=== PATIENT | female | born 1995 | race Caucasian/White ===

== ENCOUNTER → 2016-09-06 | Outpatient (CLI) | payer OTHER ==
[~2016-09-06] MED LIST: ACET50TA PO; ANUS2.5C2 PR; DOCU10ELUD PO; IBUP600T26 PO; MOM30SS PO
--- NOTE | 2016-09-06 17:37 | REP ---
Clinical: Acute headache . Comparison: None. Findings: The ventricles, sulci, and cisterns are normal in position and appearance. Wood-white differentiation is maintained. No acute intracranial hemorrhage, mass/mass effect, pathology or trauma/injury. No evidence for acute infarction. No extra-axial fluid collection. Calvarium is intact. Paranasal sinuses and mastoid air cells are clear. Impression: Normal noncontrast head CT. No evidence for acute intracranial pathology or trauma/injury. Signed by Bautista Mtz MD 09/06/2016 05:28 P
== END ==
LOC: M RAD 17:03
PROVIDERS: ATTEND Family Medicine Addiction Medicine
DX: R51 Headache (principal)

== ENCOUNTER → 2017-01-05 | Outpatient (CLI) | payer MEDICAID, OTHER, SELFPAY ==
[~2017-01-05] MED LIST changes: +IBUP80TA PO; +SUMA100T2 PO
--- NOTE | 2017-01-06 00:15 | REP ---
Clinical: Pain. Technique: AP and axial views of the left calcaneus. Findings: The calcaneus is intact without acute fracture or dislocation. The associated joint spaces are normal. The associated and surrounding soft tissue structures are unremarkable. Impression: Normal left calcaneus radiographs. Signed by Bautista Mtz MD 01/06/2017 12:06 A
--- NOTE | 2017-01-06 02:17 | REP ---
Clinical: Pain . Technique: AP, lateral, bilateral oblique views. Findings: No acute fracture or dislocation. Skeletal structures and joint spaces are intact and normal. Ankle mortise appears stable. No subcutaneous emphysema or radiodense foreign body. Impression: Normal left ankle radiograph series. Signed by Bautista Mtz MD 01/06/2017 02:08 A
== END ==
LOC: M WUC 18:18
PROVIDERS: ATTEND Physician Assistant
DX: M76.62 Achilles tendinitis, left leg (principal)

== ENCOUNTER 2017-01-10 12:05 | Emergency (ER) | payer MEDICAID, OTHER ==
[~2017-01-10] VITALS: Ht 175.3 cm; Wt 86.2 kg
[~2017-01-10 12:05] MED LIST changes: -IBUP80TA PO; -SUMA100T2 PO
[2017-01-10 12:06] VITALS: BP 116/73
[2017-01-10] MEDS ORDERED: SUMA100T2 PO (12:27)
[2017-01-10] MEDS ORDERED: IBUP80TA PO (13:06)
== END 2017-01-10 13:16 | disposition home or self-care (01) ==
LOC: M ED 12:50
DX: S93.402A Sprain of unspecified ligament of left ankle, initial encounter (principal); X58.XXXA Exposure to other specified factors, initial encounter; Y92.099 Unspecified place in other non-institutional residence as the place of occurrence of the external cause; Y93.H1 Activity, digging, shoveling and raking; Y99.9 Unspecified external cause status; R51 Headache; F17.200 Nicotine dependence, unspecified, uncomplicated

== ENCOUNTER → 2017-06-21 | Outpatient (REF) | payer OTHER ==
[~2017-06-21] MED LIST changes: +IBUP80TA PO; +SUMA100T2 PO
== END ==
LOC: M LAB REF 17:17
PROVIDERS: ATTEND Advanced Practice Midwife
DX: Z11.3 Encounter for screening for infections with a predominantly sexual mode of transmission (principal)

== ENCOUNTER → 2017-06-21 | Outpatient (REF) | payer OTHER | LOC: M LAB REF 18:36 | PROVIDERS: ATTEND Advanced Practice Midwife | DX: Z12.4 Encounter for screening for malignant neoplasm of cervix (principal) ==

== ENCOUNTER → 2017-07-03 | Outpatient (CLI) | payer OTHER ==
[2017-07-03 16:45] LABS: BASO % 0.3 % (0.0-1.0); EOS # 0.3 10^3/uL (0.0-0.50); EOS % 3.6 % (0.0-3.0); IMMATURE GRANULOCYTE % 0.3 % (0-0); LYMPH # 2.5 10^3/uL (1.5-6.5); LYMPH % 27.2 % (24.0-44.0); MEAN CORPUSCULAR HEMOGLOBIN 28.1 pg (27.0-33.0); MEAN CORPUSCULAR HGB CONC 33.4 g/dl (32.0-36.5); MEAN CORPUSCULAR VOLUME 84.1 fl (80.0-96.0); MONO # 0.6 10^3/uL (0.0-0.8); MONO % 6.4 % (0.0-5.0); NEUTROPHILS # 5.8 10^3/uL (1.8-7.7); NEUTROPHILS % 62.2 % (36.0-66.0); PLATELET COUNT, AUTOMATED 220 10^3/uL (150-450); RED CELL DISTRIBUTION WIDTH 11.9 % (11.5-14.5); WHITE BLOOD COUNT 9.4 10^3/uL (4.0-10.0)
[2017-07-03 17:42] LABS: ALBUMIN 3.9 GM/DL (3.2-5.2); ALBUMIN/GLOBULIN RATIO 1.22 (1.00-1.93); ALKALINE PHOSPHATASE 84 U/L (45-117); ALT/SGPT 38 U/L (12-78); ANION GAP 10 MEQ/L (8-16); AST/SGOT 21 U/L (7-37); BILIRUBIN,TOTAL 0.3 MG/DL (0.2-1.0); BLOOD UREA NITROGEN 11 MG/DL (7-18); CALCIUM LEVEL 9.1 MG/DL (8.5-10.1); CARBON DIOXIDE LEVEL 26 MEQ/L (21-32); CHLORIDE LEVEL 107 MEQ/L (98-107); CREATININE FOR GFR 0.73 MG/DL (0.55-1.02); GLOMERULAR FILTRATION RATE > 60.0 (>60); GLUCOSE, FASTING 94 MG/DL (70-105); POTASSIUM SERUM 4.1 MEQ/L (3.5-5.1); SODIUM LEVEL 143 MEQ/L (136-145); TOTAL PROTEIN 7.1 GM/DL (6.4-8.2)
== END ==
LOC: M LAB 16:20
PROVIDERS: ATTEND Psychiatry & Neurology Child & Adolescent Psychiatry
DX: F43.10 Post-traumatic stress disorder, unspecified (principal)

== ENCOUNTER → 2017-07-03 | Outpatient (REF) | payer OTHER | LOC: M LAB REF 17:17 | PROVIDERS: ATTEND Family Medicine Addiction Medicine | DX: F43.10 Post-traumatic stress disorder, unspecified (principal) ==

== ENCOUNTER 2017-09-09 09:45 | Emergency (ER) | payer OTHER | END 2017-09-09 10:55 | disposition left against medical advice (07) | LOC: M ED 09:45 | DX: R51 Headache (principal); Z53.21 Procedure and treatment not carried out due to patient leaving prior to being seen by health care provider ==

== ENCOUNTER 2017-09-10 15:39 | Emergency (ER) | payer OTHER ==
[2017-09-10] MEDS: ACETAMINOPHEN 325 MG TAB PO (20:16)
[2017-09-10 21:23] LABS: INFLUENZA A AMPLIFICATION NEGATIVE (NEGATIVE); INFLUENZA B AMPLIFICATION NEGATIVE (NEGATIVE)
== END 2017-09-10 21:41 | disposition home or self-care (01) ==
LOC: M ED 15:39
DX: R51 Headache (principal); J02.9 Acute pharyngitis, unspecified; R50.9 Fever, unspecified; F17.200 Nicotine dependence, unspecified, uncomplicated; Z88.8 Allergy status to other drugs, medicaments and biological substances; Z79.899 Other long term (current) drug therapy
CPT/HCPCS: 87502

== ENCOUNTER → 2017-11-10 | Outpatient (CLI) | payer OTHER | LOC: M RAD 12:54 | DX: M76.62 Achilles tendinitis, left leg (principal) | CPT/HCPCS: 73721 ==

== ENCOUNTER → 2017-11-14 | Outpatient (REF) | payer OTHER ==
[2017-11-14 17:29] LABS: BASO % 0.5 % (0.0-1.0); EOS # 0.2 10^3/uL (0.0-0.50); EOS % 3.6 % (0.0-3.0); HEMATOCRIT 41.1 % (36.0-47.0); HEMOGLOBIN 14.1 g/dl (12.0-15.5); IMMATURE GRANULOCYTE % 0.2 % (0-3.0); LYMPH % 32.1 % (24.0-44.0); MEAN CORPUSCULAR HEMOGLOBIN 27.9 pg (27.0-33.0); MEAN CORPUSCULAR HGB CONC 34.3 g/dl (32.0-36.5); MEAN CORPUSCULAR VOLUME 81.2 fl (80.0-96.0); MONO # 0.5 10^3/uL (0.0-0.8); MONO % 7.1 % (0.0-5.0); NEUTROPHILS # 3.6 10^3/uL (1.8-7.7); NEUTROPHILS % 56.5 % (36.0-66.0); PLATELET COUNT, AUTOMATED 213 10^3/uL (150-450); RED BLOOD COUNT 5.06 10^6/uL (4.00-5.40); RED CELL DISTRIBUTION WIDTH 12.4 % (11.5-14.5); WHITE BLOOD COUNT 6.3 10^3/uL (4.0-10.0)
[2017-11-14 18:29] LABS: ALBUMIN 4.1 GM/DL (3.2-5.2); ALBUMIN/GLOBULIN RATIO 1.41 (1.00-1.93); ALKALINE PHOSPHATASE 80 U/L (45-117); ALT/SGPT 37 U/L (12-78); ANION GAP 6 MEQ/L (8-16); AST/SGOT 23 U/L (7-37); BILIRUBIN,TOTAL 0.4 MG/DL (0.2-1.0); BLOOD UREA NITROGEN 11 MG/DL (7-18); CARBON DIOXIDE LEVEL 27 MEQ/L (21-32); CHLORIDE LEVEL 109 MEQ/L (98-107); CREATININE FOR GFR 0.64 MG/DL (0.55-1.30); FREE THYROXINE INDEX 3.2 % (1.3-4.8); GLOMERULAR FILTRATION RATE > 60.0 (>60); GLUCOSE, FASTING 89 MG/DL (70-100); POTASSIUM SERUM 3.9 MEQ/L (3.5-5.1); SODIUM LEVEL 142 MEQ/L (136-145); T UPTAKE 34 % (30-39); THYROID STIMULATING HORMONE 0.608 uIU/ML (0.358-3.740); THYROXINE (T4) 9.4 UG/DL (4.5-12.0)
[2017-11-15 12:56] LABS: TOTAL 25(OH) VITAMIN D 11.1 NG/ML (30.0-100.0)
== END ==
LOC: M LAB REF 17:07
DX: F43.10 Post-traumatic stress disorder, unspecified (principal)

== ENCOUNTER 2017-11-23 09:02 | Day surgery (SDC) | payer OTHER ==
[~2017-11-23 09:02] MED LIST changes: -ACET50TA PO; -ANUS2.5C2 PR; -DOCU10ELUD PO; -IBUP600T26 PO; -IBUP80TA PO; +LIDOCAINE 1% MDV 20ML VIAL SQ; +LR 1,000 ML IV; -MOM30SS PO; -SUMA100T2 PO
[2017-11-23] MEDS ORDERED: dexameTHASONE 10 MG/1 ML VIAL PRES.FREE (J1100) (09:03)
[2017-11-23] MEDS ORDERED: ROPIvacaine 0.5% 30 ML INJECTION (J2795 PER 1MG) (09:03)
[2017-11-23 10:03] LABS: CONTROL LINE UCG INT CTR LINE PRESENT; URINE PREG TEST NEGATIVE (NEGATIVE)
[2017-11-23] MEDS ORDERED: MIDAZOLAM INJ 2 MG/2 ML VIAL (J2250) As Ordered ×2 (11:09→12:26)
[2017-11-23] MEDS ORDERED: fentaNYL 100 MCG/2 ML INJECTION (J3010) As Ordered ×3 (11:09→12:26)
[2017-11-23] MEDS: fentaNYL 100 MCG/2 ML INJECTION (J3010) IV ×2 (11:36→11:47)
[2017-11-23] MEDS: MIDAZOLAM INJ 2 MG/2 ML VIAL (J2250) IV ×2 (11:36→11:37)
[2017-11-23] MEDS ORDERED: dexameTHASONE 4 MG/ML 1ML VIAL (J1100) As Ordered (12:26)
[2017-11-23] MEDS ORDERED: LIDOCAINE 2% INJ 100 MG/5 ML SDV (FOR ANES.) As Ordered (12:26)
[2017-11-23] MEDS ORDERED: PROPOFOL 200 MG/20 ML VIAL As Ordered (12:26)
[2017-11-23] MEDS ORDERED: ROCURONIUM BROMIDE 50 MG/5 ML VIAL As Ordered (12:26)
[2017-11-23] MEDS ORDERED: KETOROLAC 60 MG/2 ML VIAL (J1885) As Ordered (14:01)
[2017-11-23] MEDS ORDERED: ONDANSETRON 4MG/2ML VIAL (J2405) As Ordered (14:01)
[2017-11-23] MEDS ORDERED: HYDROmorphone HCL 2 MG/ML 1ML VIAL (J1170) As Ordered (14:21)
[2017-11-23] MEDS ORDERED: METOCLOPRAMIDE INJ 10MG/2ML VIAL (J2765) As Ordered (16:28)
[2017-11-23] MEDS ORDERED: KETOROLAC 30 MG/ML VIAL (J1885) IV (16:30)
[2017-11-23] MEDS ORDERED: PERCOCET 5MG/325MG TAB PO (16:30)
[2017-11-23] MEDS ORDERED: oxyCODONE 5MG TAB PO ×2 (16:30)
[2017-11-23] MEDS ORDERED: LR 1,000 ML IV ×2 (16:30)
[2017-11-23] MEDS ORDERED: ONDANSETRON 4MG/2ML VIAL (J2405) IV (16:30)
[2017-11-23] MEDS ORDERED: fentaNYL 100 MCG/2 ML INJECTION (J3010) IV (16:30)
[2017-11-23] MEDS: METOCLOPRAMIDE INJ 10MG/2ML VIAL (J2765) IV (16:40)
== END 2017-11-23 19:15 | disposition home or self-care (01) ==
LOC: M SDC 09:02
DX: M76.62 Achilles tendinitis, left leg (principal); F32.9 Major depressive disorder, single episode, unspecified; F41.9 Anxiety disorder, unspecified; G43.909 Migraine, unspecified, not intractable, without status migrainosus; T88.59XD Other complications of anesthesia, subsequent encounter; Z88.5 Allergy status to narcotic agent; Z88.6 Allergy status to analgesic agent; Z88.8 Allergy status to other drugs, medicaments and biological substances; Z79.899 Other long term (current) drug therapy; Z87.891 Personal history of nicotine dependence
CPT/HCPCS: 27650

== ENCOUNTER 2017-11-29 15:17 | Inpatient (IN) | payer OTHER ==
[2017-11-29 16:06] LABS: HEMATOCRIT 46.4 % (36.0-47.0); MEAN CORPUSCULAR HGB CONC 34.5 g/dl (32.0-36.5); MEAN CORPUSCULAR VOLUME 81.1 fl (80.0-96.0); PLATELET COUNT, AUTOMATED 297 10^3/uL (150-450); RED BLOOD COUNT 5.72 10^6/uL (4.00-5.40); RED CELL DISTRIBUTION WIDTH 12.6 % (11.5-14.5); WHITE BLOOD COUNT 12.9 10^3/uL (4.0-10.0)
[2017-11-29 16:27] LABS: AMPHETAMINES LEVEL URINE NEGATIVE (NEGATIVE); BARBITURATES URINE NEGATIVE (NEGATIVE); BENZODIAZEPINES URINE NEGATIVE (NEGATIVE); CANNABINOIDS URINE NEGATIVE (NEGATIVE); COCAINE METABOLITE URINE NEGATIVE (NEGATIVE); METHADONE URINE NEGATIVE (NEGATIVE); OPIATES URINE NEGATIVE (NEGATIVE); PHENCYCLIDINE URINE NEGATIVE (NEGATIVE)
[2017-11-29 16:39] LABS: ALBUMIN 4.8 GM/DL (3.2-5.2); ALBUMIN/GLOBULIN RATIO 1.45 (1.00-1.93); ALKALINE PHOSPHATASE 81 U/L (45-117); ALT/SGPT 92 U/L (12-78); ANION GAP 8 MEQ/L (8-16); AST/SGOT 25 U/L (7-37); BILIRUBIN,DIRECT 0.2 MG/DL (0.0-0.2); BILIRUBIN,TOTAL 0.6 MG/DL (0.2-1.0); BLOOD UREA NITROGEN 11 MG/DL (7-18); CALCIUM LEVEL 9.6 MG/DL (8.5-10.1); CARBON DIOXIDE LEVEL 22 MEQ/L (21-32); CHLORIDE LEVEL 110 MEQ/L (98-107); ETHYL ALCOHOL (ETHANOL) < 0.003 % (0.000-0.010); GLOMERULAR FILTRATION RATE > 60.0 (>60); GLUCOSE, FASTING 99 MG/DL (70-100); POTASSIUM SERUM 4.1 MEQ/L (3.5-5.1); SALICYLATE LEVEL < 1.7 MG/DL (5.0-30.0); SODIUM LEVEL 140 MEQ/L (136-145); TOTAL PROTEIN 8.1 GM/DL (6.4-8.2)
[2017-11-29 16:40] LABS: ACETAMINOPHEN LEVEL < 2.0 UG/ML (10.0-30.0)
[2017-11-29] MEDS ORDERED: MAALOX 30 ML SUSP *UDC PO (18:30)
[2017-11-29] MEDS ORDERED: ACETAMINOPHEN TAB 650MG DOSE (2X325MG) PO (18:30)
[2017-11-29] MEDS ORDERED: MOM 30ML SUSPENSION UDC PO (18:30)
[2017-11-29] MEDS: IBUPROFEN 600 MG TAB PO (19:40)
[2017-11-29] MEDS: traZODone 50 MG TAB PO (22:33)
[2017-11-29] MEDS: PRAZOSIN 1 MG CAP PO (22:34)
[2017-11-30] MEDS ORDERED: NICOTINE 21MG/24HR 1 EA TRANSDERMAL TD (00:45)
[2017-11-30] MEDS: SERTRALINE HCL 50 MG TAB PO (08:49)
[2017-11-30] MEDS: IBUPROFEN 600 MG TAB PO (08:50)
[2017-12-01] MEDS ORDERED: INFLUENZA QUADRIVALENT PF VACCINE 0.5ML SYRINGE (90686) IM (09:00)
[2017-12-01 09:47] LABS: HEPATITIS B SURFACE ANTIGEN NEGATIVE (NEGATIVE)
[2017-12-01 10:14] LABS: HEPATITIS C VIRUS ABY INDEX 0.1 INDEX (<0.8)
[2017-12-01 10:14] LABS: HEPATITIS B CORE ANTIBODY IGM NEGATIVE (NEGATIVE)
[2017-12-01 10:16] LABS: HEPATITIS A ANTIBODY IGM NEGATIVE (NEGATIVE)
== END 2017-11-30 13:00 | disposition home or self-care (01) | DRG 754 ==
LOC: M ED 15:17 → M ED INP 18:16 → M PSY 21:20
PROVIDERS: Psychiatry & Neurology Psychiatry
DX: F43.21 Adjustment disorder with depressed mood (principal); Z79.899 Other long term (current) drug therapy; Z88.5 Allergy status to narcotic agent; Z88.8 Allergy status to other drugs, medicaments and biological substances; F17.200 Nicotine dependence, unspecified, uncomplicated; D72.829 Elevated white blood cell count, unspecified; R94.5 Abnormal results of liver function studies

== ENCOUNTER → 2018-01-23 | Outpatient (REF) | payer OTHER ==
[2018-01-29 00:09] LABS: D001-IgE D pteronyssinus <0.10 kU/L (Class 0); E001-IgE Cat Epith/Dander < 0.10 kU/L (Class 0); E005-IgE Dog Dander < 0.10 kU/L (Class 0); F256-IGE WALNUT <0.10 kU/L (Class 0); G002-IgE Bermuda Grass < 0.10 kU/L (Class 0); G006-IGE TIMOTHY GRASS <0.10 kU/L (Class 0); G008-IgE Kentucky Bluegrass < 0.10 kU/L (Class 0); M001-IgE Penicillium chrysogen < 0.10 kU/L (Class 0); M002 IgE Cladosporium herbaru < 0.10 kU/L (Class 0); M003 IgE Aspergillus fumigatu < 0.10 kU/L (Class 0); M006-IgE Alternaria alternata < 0.10 kU/L (Class 0); T001-IgE Maple/Box Elder < 0.10 kU/L (Class 0); T003-IgE Common Silver Birch < 0.10 kU/L (Class 0); T006-IgE Cedar, Mountain < 0.10 kU/L (Class 0); T007-IgE Oak, White < 0.10 kU/L (Class 0); T008-IgE Elm, American < 0.10 kU/L (Class 0); T015-IgE Ash, White < 0.10 kU/L (Class 0); T041-IgE Hickory, White < 0.10 kU/L (Class 0); T070-IgE White Mulberry < 0.10 kU/L (Class 0); W001-IgE Ragweed, Short < 0.10 kU/L (Class 0); W009-IgE Plantain, English < 0.10 kU/L (Class 0); W014-IgE Pigweed, Rough < 0.10 kU/L (Class 0); W018-IgE Sheep Sorrel < 0.10 kU/L (Class 0)
== END ==
LOC: M LAB REF 18:59
DX: R09.81 Nasal congestion (principal)
CPT/HCPCS: 86003

== ENCOUNTER → 2018-04-02 | Outpatient (REF) | payer OTHER ==
[2018-04-02 18:48] LABS: CONTROL LINE UCG INT CTR LINE PRESENT; URINE PREG TEST NEGATIVE (NEGATIVE)
[2018-04-02 19:06] LABS: BASO % 0.4 % (0.0-1.0); EOS # 0.2 10^3/uL (0.0-0.50); EOS % 2.5 % (0.0-3.0); HEMATOCRIT 43.2 % (36.0-47.0); HEMOGLOBIN 14.6 g/dl (12.0-15.5); IMMATURE GRANULOCYTE % 0.3 % (0-3.0); LYMPH # 1.9 10^3/uL (1.5-6.5); LYMPH % 24.7 % (24.0-44.0); MEAN CORPUSCULAR HEMOGLOBIN 28.5 pg (27.0-33.0); MEAN CORPUSCULAR HGB CONC 33.8 g/dl (32.0-36.5); MEAN CORPUSCULAR VOLUME 84.4 fl (80.0-96.0); MONO # 0.5 10^3/uL (0.0-0.8); MONO % 6.6 % (0.0-5.0); NEUTROPHILS # 5.2 10^3/uL (1.8-7.7); NEUTROPHILS % 65.5 % (36.0-66.0); PLATELET COUNT, AUTOMATED 219 10^3/uL (150-450); RED BLOOD COUNT 5.12 10^6/uL (4.00-5.40); WHITE BLOOD COUNT 7.9 10^3/uL (4.0-10.0)
[2018-04-02 19:22] LABS: APPEARANCE, URINE HAZY (CLEAR); BACTERIA, URINE AUTO 1+ (NEGATIVE); BILIRUBIN, URINE AUTO NEGATIVE (NEGATIVE); BLOOD, URINE BLOOD 1+ (NEGATIVE); COLOR, URINE YELLOW (YELLOW); GLUCOSE, URINE (UA) AUTO NEGATIVE (NEGATIVE); KETONE, URINE AUTO NEGATIVE (NEGATIVE); LEUKOCYTE ESTERASE, URINE AUTO TRACE (NEGATIVE); MUCUS, URINE SMALL (NEGATIVE); NITRITE, URINE AUTO NEGATIVE (NEGATIVE); PROTEIN, URINE AUTO NEGATIVE (NEGATIVE); RBC, URINE AUTO 7 /HPF (0-3); SPECIFIC GRAVITY URINE AUTO 1.014 (1.002-1.035); SQUAMOUS EPITHELIAL CELL UR AU 3 /HPF (0-6); UROBILINOGEN, URINE AUTO 0.2 mg/dL (0.0-2.0); WBC, URINE AUTO 31 /HPF (0-3)
[2018-04-02 23:17] LABS: ALBUMIN 4.2 GM/DL (3.2-5.2); ALKALINE PHOSPHATASE 79 U/L (45-117); ALT/SGPT 29 U/L (12-78); ANION GAP 11 MEQ/L (8-16); AST/SGOT 16 U/L (7-37); BILIRUBIN,TOTAL 0.5 MG/DL (0.2-1.0); BLOOD UREA NITROGEN 9 MG/DL (7-18); CARBON DIOXIDE LEVEL 21 MEQ/L (21-32); CHLORIDE LEVEL 108 MEQ/L (98-107); FREE THYROXINE INDEX 3.6 % (1.3-4.8); GLOMERULAR FILTRATION RATE > 60.0 (>60); GLUCOSE, FASTING 92 MG/DL (70-100); POTASSIUM SERUM 4.1 MEQ/L (3.5-5.1); SODIUM LEVEL 140 MEQ/L (136-145); T UPTAKE 32 % (30-39); THYROID STIMULATING HORMONE 0.919 uIU/ML (0.358-3.740); THYROXINE (T4) 11.4 UG/DL (4.5-12.0); TOTAL PROTEIN 7.4 GM/DL (6.4-8.2)
[2018-04-02 23:34] LABS: ALBUMIN/GLOBULIN RATIO 1.31 (1.00-1.93)
[2018-04-03 00:12] LABS: CHLAMYDIA DNA AMPLIFICATION NEGATIVE (NEGATIVE); GC DNA AMPLIFICATION NEGATIVE (NEGATIVE)
[2018-04-04 19:36] LABS: HIV 1&2 SCREEN CENTAUR NEGATIVE (NEGATIVE)
== END ==
LOC: M LAB REF 17:05
DX: Z72.51 High risk heterosexual behavior (principal)

== ENCOUNTER 2018-05-02 11:01 | Emergency (ER) | payer OTHER | END 2018-05-02 12:14 | disposition home or self-care (01) | LOC: M ED 11:01 | DX: S60.221A Contusion of right hand, initial encounter (principal); W23.0XXA Caught, crushed, jammed, or pinched between moving objects, initial encounter; Y92.018 Other place in single-family (private) house as the place of occurrence of the external cause; F33.9 Major depressive disorder, recurrent, unspecified; F41.9 Anxiety disorder, unspecified; F43.10 Post-traumatic stress disorder, unspecified; Z79.899 Other long term (current) drug therapy; Z79.3 Long term (current) use of hormonal contraceptives; Z88.8 Allergy status to other drugs, medicaments and biological substances; F17.201 Nicotine dependence, unspecified, in remission | CPT/HCPCS: 73120 ==

== ENCOUNTER 2018-11-03 11:31 | Emergency (ER) | payer OTHER ==
[~2018-11-03] VITALS: Ht 170.2 cm; Wt 77.3 kg
[~2018-11-03 11:31] MED LIST changes: +ANUS2.5C2 PR; +DOCU5LIQ PO; +GABA-1171 PO; +IBUP600T26 PO; +IBUP80TA PO; +IBUPOTC PO; -LIDOCAINE 1% MDV 20ML VIAL SQ; -LR 1,000 ML IV; +MAPA500T17 PO; +MAXA10TA15 PO; +MOM30SS PO; +NEXP1IMP SC; +OXYC-517 PO; +PRAZ1CAP; +PRAZ2CAP PO; +SERT-138 PO; +SERT-155 PO; +SUMA100T2 PO; +TRAZ-186; +WELLTAB40 PO; +[UNRECOGNIZED DRUG - REMARK]
[2018-11-03] MEDS ORDERED: KETOROLAC 60 MG/2 ML VIAL (J1885) IM ONE (12:30)
--- NOTE | 2018-11-03 13:06 | REP ---
Right shoulder series: Three views. History: Trauma. Findings: The right glenohumeral and acromioclavicular joints are normally aligned. Periarticular soft tissues are unremarkable. Impression: Negative right shoulder radiographs. Electronically Signed by Sundar Farnsworth MD 11/03/2018 12:58 P
--- NOTE | 2018-11-03 13:06 | REP ---
Left forearm: Two views. History: Injury in a fall. Findings: AP and lateral views of the left forearm demonstrate normal bones, joints and soft tissues. No fracture or subluxation is seen. Impression: No fracture noted. Electronically Signed by Sundar Farnsworth MD 11/03/2018 12:59 P
--- NOTE | 2018-11-03 13:07 | REP ---
Left humerus: Two views. History: Injury in a fall. Findings: Two views of the left humerus demonstrate normal bones, joints and soft tissues. No fracture or subluxation is seen. There is a linear subcutaneous implant in the left upper arm soft tissues. Impression: No fracture noted. Electronically Signed by Sundar Farnsworth MD 11/03/2018 01:00 P
[2018-11-03] MEDS ORDERED: NAPR-837 PO (13:13)
[2018-11-03 13:20] VITALS: BP 106/65
== END 2018-11-03 13:26 | disposition home or self-care (01) ==
LOC: M ED 11:31
DX: S40.011A Contusion of right shoulder, initial encounter (principal); S50.02XA Contusion of left elbow, initial encounter; W10.9XXA Fall (on) (from) unspecified stairs and steps, initial encounter; Y92.89 Other specified places as the place of occurrence of the external cause; Y93.9 Activity, unspecified; Y99.0 Civilian activity done for income or pay; R51 Headache; F43.10 Post-traumatic stress disorder, unspecified; N93.8 Other specified abnormal uterine and vaginal bleeding; Z72.0 Tobacco use; Z79.3 Long term (current) use of hormonal contraceptives; Z79.899 Other long term (current) drug therapy; Z88.5 Allergy status to narcotic agent
CPT/HCPCS: 73030; 73060; 73090; 96372; 99283; J1885

== ENCOUNTER → 2018-12-05 | Outpatient (REF) | payer OTHER ==
[~2018-12-05] MED LIST changes: +NAPR-837 PO
[2018-12-05 18:24] LABS: BASO % 0.3 % (0.0-1.0); EOS # 0.2 10^3/uL (0.0-0.50); EOS % 2.6 % (0.0-3.0); HEMATOCRIT 42.9 % (36.0-47.0); HEMOGLOBIN 14.3 g/dl (12.0-15.5); LYMPH # 2.2 10^3/uL (1.5-6.5); LYMPH % 31.7 % (24.0-44.0); MEAN CORPUSCULAR HEMOGLOBIN 28.4 pg (27.0-33.0); MEAN CORPUSCULAR HGB CONC 33.3 g/dl (32.0-36.5); MEAN CORPUSCULAR VOLUME 85.1 fl (80.0-96.0); MONO # 0.6 10^3/uL (0.0-0.8); MONO % 8.9 % (0.0-5.0); NEUTROPHILS # 3.8 10^3/uL (1.8-7.7); NEUTROPHILS % 56.2 % (36.0-66.0); PLATELET COUNT, AUTOMATED 206 10^3/uL (150-450); RED BLOOD COUNT 5.04 10^6/uL (4.00-5.40); WHITE BLOOD COUNT 6.8 10^3/uL (4.0-10.0)
[2018-12-05 18:43] LABS: ALT/SGPT 26 U/L (12-78); BILIRUBIN,TOTAL 0.4 MG/DL (0.2-1.0); BLOOD UREA NITROGEN 11 MG/DL (7-18); CARBON DIOXIDE LEVEL 27 MEQ/L (21-32); CHLORIDE LEVEL 109 MEQ/L (98-107); CREATININE FOR GFR 0.68 MG/DL (0.55-1.30); GLOMERULAR FILTRATION RATE > 60.0 (>60); GLUCOSE, FASTING 80 MG/DL (70-100); POTASSIUM SERUM 4.2 MEQ/L (3.5-5.1); SODIUM LEVEL 140 MEQ/L (136-145); TOTAL PROTEIN 6.6 GM/DL (6.4-8.2)
== END ==
LOC: M LAB REF 17:56
PROVIDERS: ATTEND Nurse Practitioner Family
DX: R23.8 Other skin changes (principal)

== ENCOUNTER 2019-04-17 13:50 | Emergency (ER) | payer OTHER ==
[~2019-04-17] VITALS: Ht 170.2 cm; Wt 82.6 kg
[~2019-04-17 13:50] MED LIST changes: -PRAZ1CAP; +PRAZ1CAP PO
--- NOTE | 2019-04-17 15:59 | REP ---
CHEST, TWO VIEWS: There is no evidence of acute infiltrate. No pleural effusion is seen. The heart is normal in size. The mediastinal silhouette is unremarkable. The visualized osseous structures are intact. IMPRESSION: No acute pulmonary disease. Electronically Signed by Clovis Wood MD 04/18/2019 08:59 A
[2019-04-17] MEDS ORDERED: MUCI600T31 PO (16:25)
[2019-04-17] MEDS ORDERED: TESS100C PO (16:25)
[2019-04-17] MEDS ORDERED: IBUP-1022 PO (16:25)
[2019-04-17 16:45] VITALS: BP 125/78
--- NOTE | 2019-04-17 20:49 | ECGEPIP ---
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
== END 2019-04-17 16:44 | disposition home or self-care (01) ==
LOC: M ED 13:50
DX: J40 Bronchitis, not specified as acute or chronic (principal); S46.911A Strain of unspecified muscle, fascia and tendon at shoulder and upper arm level, right arm, initial encounter; X58.XXXA Exposure to other specified factors, initial encounter; Y92.89 Other specified places as the place of occurrence of the external cause; Z88.4 Allergy status to anesthetic agent; F17.210 Nicotine dependence, cigarettes, uncomplicated; Z79.899 Other long term (current) drug therapy

== ENCOUNTER → 2020-08-04 | Outpatient (REF) | payer OTHER ==
[~2020-08-04] MED LIST changes: +IBUP-1022 PO; +MUCI600T31 PO; -SERT-155 PO; +SERT50TA29 PO; +TESS100C PO
== END ==
LOC: M SFHCWAGY 18:08
PROVIDERS: ATTEND Nurse Practitioner Family
DX: Z12.4 Encounter for screening for malignant neoplasm of cervix (principal)
CPT/HCPCS: 87624; G0123; G0463

== ENCOUNTER → 2020-09-14 | Outpatient (REF) | payer OTHER | LOC: M SFHCWAGY 13:04 | PROVIDERS: ATTEND Nurse Practitioner Women's Health | DX: R87.613 High grade squamous intraepithelial lesion on cytologic smear of cervix (HGSIL) (principal) ==

== ENCOUNTER 2021-02-27 08:03 | Observation (INO) | payer OTHER ==
[~2021-02-27] VITALS: Ht 170.2 cm; Wt 85.3 kg
[2021-02-27] MEDS ORDERED: ETON1VAG3 PV (08:11)
[2021-02-27] MEDS: ACETAMINOPHEN TAB 650MG DOSE (2X325MG) PO ONE ×2 (08:20→08:56)
[2021-02-27 08:54] LABS: BASO # 0.1 10^3/uL (0.0-0.2); BASO % 0.3 % (0.0-1.0); EOS # 0.1 10^3/uL (0.0-0.5); EOS % 0.9 % (0.0-3.0); HEMOGLOBIN 14.7 g/dl (12.0-15.5); LYMPH # 1.6 10^3/uL (1.5-5.0); LYMPH % 10.8 % (24.0-44.0); MEAN CORPUSCULAR HEMOGLOBIN 27.8 pg (27.0-33.0); MEAN CORPUSCULAR HGB CONC 33.4 g/dl (32.0-36.5); MEAN CORPUSCULAR VOLUME 83.2 fl (80.0-96.0); MONO # 0.8 10^3/uL (0.0-0.8); MONO % 5.2 % (2.0-8.0); NEUTROPHILS # 12.6 10^3/uL (1.5-8.5); NEUTROPHILS % 82.4 % (36.0-66.0); PLATELET COUNT, AUTOMATED 208 10^3/uL (150-450); RED BLOOD COUNT 5.29 10^6/uL (4.00-5.40); WHITE BLOOD COUNT 15.2 10^3/uL (4.0-10.0)
[2021-02-27] MEDS ORDERED: ACETAMINOPHEN 325 MG/10.15 ML UDC PO ONE (09:00)
[2021-02-27 09:09] LABS: BLOOD UREA NITROGEN 13 MG/DL (7-18); CALCIUM LEVEL 9.2 MG/DL (8.5-10.1); CARBON DIOXIDE LEVEL 24 MEQ/L (21-32); CHLORIDE LEVEL 109 MEQ/L (98-107); CREATININE FOR GFR 0.71 MG/DL (0.55-1.30); GLOMERULAR FILTRATION RATE > 60.0 (>60); GLUCOSE, FASTING 101 MG/DL (70-100); POTASSIUM SERUM 3.8 MEQ/L (3.5-5.1); SODIUM LEVEL 139 MEQ/L (136-145)
[2021-02-27 09:21] LABS: RSV AMPLIFICATION NEGATIVE (NEGATIVE)
[2021-02-27] MEDS ORDERED: ISOVUE-370 76% 100ML VIAL As Ordered ONE (09:23)
[2021-02-27] MEDS ORDERED: KETOROLAC 30 MG/ML 1ML VIAL IV ONE (09:45)
--- NOTE | 2021-02-27 10:15 | REPVR ---
PROCEDURE INFORMATION: Exam: CT Neck With Contrast Exam date and time: 02/27/2021 9:30 AM Age: 25 years old Clinical indication: Neck pain; Additional info: Sore throat/neck pain eval for infection TECHNIQUE: Imaging protocol: Computed tomography images of the neck with contrast. Radiation optimization: All CT scans at this facility use at least one of these dose optimization techniques: automated exposure control; mA and/or kV adjustment per patient size (includes targeted exams where dose is matched to clinical indication); or iterative reconstruction. Contrast material: ISOVUE 370; Contrast volume: 75 ml; Contrast route: INTRAVENOUS (IV); COMPARISON: CT Head without contrast 09/06/2016 5:16 PM FINDINGS: Larynx: Ill-defined low-attenuation mucosal and submucosal lesion along the left aspect of the oropharynx extends to the level of the epiglottis. Effacement of the adjacent fat planes the left parapharyngeal space. There is effacement the left piriform sinus and epiglottic vallecula. Retropharyngeal space: Unremarkable. Submandibular/Parotid glands: Normal. Glands are normal in size. Thyroid: Normal. No enlarged or calcified nodules. Lymph nodes: Left jugular chain adenopathy. Trachea: Visualized trachea is unremarkable. Lungs: Unremarkable as visualized. Bones/joints: Unremarkable. No acute fracture. Soft tissues: Unremarkable. No significant soft tissue swelling. IMPRESSION: Ill-defined low-attenuation mucosal and submucosal lesion along the left aspect of the oropharynx extends to the level of the epiglottis. Infectious process is favored. Electronically signed by: Teja Shah On 02/27/2021 10:15:03 AM
[2021-02-27] MEDS ORDERED: AMPICILLIN SOD/SULBACTAM SOD 3 GM in D5W MINI-BAG PLUS 100 ML IV ONE (11:05)
[2021-02-27] MEDS ORDERED: HOME MED LIST COMPLETE! XX SCH (11:20)
--- NOTE | 2021-02-27 12:57 | HPEPDOC ---
[facility] Medical History & Physical Date of Admission Feb 27, 2021 Date of Service: Feb 27, 2021 Primary Care Physician: LUCY OLSEN MD History and Physical CHIEF COMPLAINT: Sore throat HISTORY OF PRESENT ILLNESS: Maliha Limon is a 25-year-old female who presented to the emergency department today due to sudden onset of a sore throat 1 day ago. She states that her throat has been so sore that has been painful to swallow. She is a having a hard time swallowing especially with pills and food. She is able to swallow water but does have pain with this. She is able to swallow her saliva but states this is painful as well. She reports a cough which is nonproductive. No hemoptysis. No fevers or chills at home. She denies any sick contacts and no one at home has been similarly sick. No recent travel. No recent upper respiratory illness or sinus infections. She does report the pain in her throat seems to be spreading up toward her ears. She denies ear fullness and sinus congestion. Denies any recent trauma to her throat or ingestion of anything toxic. She denies any history of similar episodes. On evaluation the emergency department, the patient is found to have an elevated white blood cell count and CT of the neck shows a lesion in the mucosal and submucosal layers of the oropharynx, approaching the epiglottis. ENT was called by the ER physician and Dr. Morley recommended admission with IV antibiotics and ENT consultation. PAST MEDICAL HISTORY: Left Achilles tendon rupture at age 3 Dysfunctional uterine bleeding Migraine headaches PTSD/anxiety/depression PAST SURGICAL HISTORY: Repair of left Achilles tendon x2 SOCIAL HISTORY: Current daily smoker No alcohol. No illicit drugs. Lives at home with 3 children FAMILY HISTORY: Maternal grandmother with history of breast cancer and cervical cancer. Unknown paternal history. ALLERGIES: Please see below. REVIEW OF SYSTEMS: CONSTITUTIONAL: Denies fevers, chills, night sweats, fatigue, unexpected change in weight. HEENT: Denies change in vision, change in hearing. CARDIOVASCULAR: Denies chest pain, palpitations, shortness of breath, lightheadedness. RESPIRATORY: Denies dyspnea, cough, wheezing. GASTROINTESTINAL: Denies nausea, vomiting, abdominal pain, diarrhea, constipation, blood in stool. GENITOURINARY: Denies dysuria, urinary frequency, urinary urgency. SKIN: Denies rash, lesions. MUSCULOSKELETAL: Denies joint pain or muscle aches. NEUROLOGICAL: Denies dizziness, weakness. PSYCHIATRIC: Denies change in mood. HOME MEDICATIONS: Please see below. PHYSICAL EXAMINATION: GENERAL: Alert, comfortable, in no acute distress HEENT: Normocephalic, atraumatic, EOMI, moist mucous membranes with erythema in the back of the throat. No ulceration or exudate was visualized in the throat. NECK: Supple, trachea midline, tender lymphadenopathy along the left anterior cervical chain CARDIOVASCULAR: Regular rate and rhythm, normal S1 and S2. No murmurs, rubs, or gallops RESPIRATORY: Clear to auscultation bilaterally with equal air entry bilaterally. No wheezing, rhonchi, or rales. ABDOMEN: Soft, nontender, nondistended, bowel sounds present EXTREMITIES: No edema. Pulses 2+/4 in bilateral upper and lower extremities SKIN: [place], warm, dry NEUROLOGIC: Alert and oriented x3 to person, place and time. No focal deficits appreciated PSYCHIATRIC: Mood and affect appropriate LABORATORY DATA: See below. IMAGING: - Neck CT (impression per radiologist report) Ill-defined low-attenuation mucosal and submucosal lesion along the left aspect of the oropharynx extends to the level of the epiglottis. Infectious process is favored. MICROBIOLOGY: Please see below. ASSESSMENT: 25-year-old female who presented with 1 day history of sore throat found to have lesion in the oropharynx extending from the mucosal to the submucosal layer admitted for IV antibiotics and ENT consultation PLAN: #Oropharynx lesion likely infectious Rapid strep negative, throat culture pending. Flu/RSV/Covid testing negative. Elevated WBC count, trend CBC daily Antibiotic coverage with Unasyn day #1 ENT/Dr. Morley consulted, appreciate recommendations Due to difficulty swallowing we will keep on full liquids diet. If she has poor oral intake we can give her IV fluids for maintenance We will give Toradol IV as needed for pain DVT prophylaxis: SC Lovenox 40 daily Disposition: Admitted to [facility] expect greater than 2 midnight stay Vital Signs Vital Signs Date Time Temp Pulse Resp B/P (MAP) Pulse Ox O2 Delivery O2 Flow Rate FiO2 02/27/21 11:38 75 18 120/77 (91) 97 Room Air 02/27/21 08:03 97.1 Laboratory Data Labs 24H Laboratory Tests 2 02/27/21 08:22: Immature Granulocyte % (Auto) 0.4, Neutrophils (%) (Auto) 82.4H, Lymphocytes (%) (Auto) 10.8L, Monocytes (%) (Auto) 5.2, Eosinophils (%) (Auto) 0.9, Basophils (%) (Auto) 0.3, Neutrophils # (Auto) 12.6H, Lymphocytes # (Auto) 1.6, Monocytes # (Auto) 0.8, Eosinophils # (Auto) 0.1, Basophils # (Auto) 0.1, Nucleated Red Blood Cells % (auto) 0.0, Anion Gap 6L, Glomerular Filtration Rate > 60.0, Calcium Level 9.2, Coronavirus (COVID-19)(PCR) NEGATIVE, Influenza Type A (RT- PCR) NEGATIVE, Influenza Type B (RT-PCR) NEGATIVE, Respiratory Syncytial Virus (PCR) NEGATIVE 02/27/21 08:35: POC Group A Strep Rapid Screen NEGATIVE CBC/BMP Laboratory Tests 02/27/21 08:22 Microbiology Microbiology 02/27/21 Group A Streptococcus Screen (JERALD), Received Pending Home Medications Scheduled Etonogestrel/Ethinyl Estradiol (Etonogestrel-Ee Vaginal Ring) 1 Each Vag.ring, 1 RING PV ASDIRECTED Allergies Coded Allergies: topiramate (Verified Allergy, Unknown, can't swallow, 11/03/18) GME ATTESTATION GME ATTESTATION My faculty preceptor for this patient encounter was physically present during the encounter and was fully available. All aspects of the patient interview, examination, medical decision making process, and medical care plan development were reviewed and approved by the faculty preceptor. The faculty preceptor is aware and concurs with the plan as stated in the body of this note and will attest to such by his/her cosignature. ATTENDING NOTE I personally examined Ms. Limon and discussed her findings and management with the resident team as noted above. I agree with the above summary of findings and medical management of this otherwise healthy woman's acute pharyngitis with odynophagia. ENT is consulted, and for now we will give IV unasyn. CHELSEA YOUNG D.O. Feb 27, 2021 12:14 LUCY OLSEN MD Feb 28, 2021 09:48
[2021-02-27 13:40] VITALS: BP 120/59
--- NOTE | 2021-02-27 14:39 | CR.PDOC ---
General Date of Consultation: Feb 27, 2021 Referring Provider: CHELSEA YOUNG D.O. Attending Physician: CHELSEA YOUNG D.O. Consultation REASON FOR CONSULTATION/CHIEF COMPLAINT: [Left pharyngeal space infection]. HISTORY OF PRESENT ILLNESS: [Maliha is a 25-year-old female who woke yesterday with some mild discomfort in her throat on the left side. This was not particularly concerning to her. She been otherwise healthy. No other family members were ill. She treated this symptomatically yesterday but in her words this was no big deal. She woke this morning with significantly worsening of the sore throat on the left side and difficulty swallowing. She has had no issues with shortness of breath or stridor. There is no prior history of any similar infections. She came to the emergency room where she was examined and noted to be afebrile vital signs were stable. Laboratory work showed a white count of 15. Physical exam showed a tender left neck some neck stiffness. Rapid strep was negative. Throat culture is pending. Flu RSV and Covid testing were negative.]. A CT scan was done which showed hypodense area on the left parapharyngeal space. No betty abscess evident on CT. She has been admitted and is getting IV Unasyn. ALLERGIES: Please see below. HOME MEDICATIONS: Please see below. PAST MEDICAL HISTORY: 1. [She is a previous history of Achilles tendon rupture age 3 migraine headaches. PTSD. Dysfunctional uterine bleeding.]. 2. . PAST SURGICAL HISTORY: 1. [Achilles repair age 3] 2. FAMILY HISTORY: Noncontributory Father: Mother: Siblings: Children: Hereditary Diseases: Unexpected deaths due to medical reasons: SOCIAL HISTORY: She has 3 children and is a current active smoker. Marital status and/or living arrangements: Children: Employment: Tobacco use: ETOH: Illicit drug use: IV drug use: Other relevant social factors: REVIEW OF SYSTEMS: CONSTITUTIONAL: . HEENT: . CARDIOVASCULAR: . RESPIRATORY: . GENITOURINARY: . MUSCULOSKELETAL: . GASTROINTESTINAL: . SKIN: . NEUROLOGICAL: . PSYCHIATRIC: . ENDOCRINE: . HEMATOLOGIC/LYMPHATIC: . ALLERGIC/IMMUNOLOGIC: . PHYSICAL EXAMINATION: VITAL SIGNS: Please see below. GENERAL APPEARANCE: [Resting comfortably complains of left neck stiffness and tenderness to palpation.]. HEENT: [Normal. In particular no oropharyngeal swelling evident.]. RESPIRATORY: [No stridor or shortness of breath]. CARDIOVASCULAR: . ABDOMEN: . EXTREMITIES: . NEUROLOGICAL: . PSYCHIATRIC: . LABORATORY DATA: Please see below. ASSESSMENT/PLAN: 1. [It would be very unusual for Maliha to have a betty abscess after only 24 hours of illness. I suspect she has a parapharyngeal infection. We would agree with IV Unasyn and close observation. I would recommend deferring Lovenox for DVT prophylaxis in favor of sequential stockings. This would be in case the antibiotics fail to respond and patient goes on to develop abscess or require surgical drainage. I will follow her daily.]. 2. . Vital Signs/I&O Vital Signs Date Time Temp Pulse Resp B/P (MAP) Pulse Ox O2 Delivery O2 Flow Rate FiO2 02/27/21 13:40 97.3 70 20 120/59 (79) 96 Room Air Laboratory Data Labs 24H Laboratory Tests 2 02/27/21 08:22: Immature Granulocyte % (Auto) 0.4, Neutrophils (%) (Auto) 82.4H, Lymphocytes (%) (Auto) 10.8L, Monocytes (%) (Auto) 5.2, Eosinophils (%) (Auto) 0.9, Basophils (%) (Auto) 0.3, Neutrophils # (Auto) 12.6H, Lymphocytes # (Auto) 1.6, Monocytes # (Auto) 0.8, Eosinophils # (Auto) 0.1, Basophils # (Auto) 0.1, Nucleated Red Blood Cells % (auto) 0.0, Anion Gap 6L, Glomerular Filtration Rate > 60.0, Ca lcium Level 9.2, Coronavirus (COVID-19)(PCR) NEGATIVE, Influenza Type A (RT-PCR) NEGATIVE, Influenza Type B (RT-PCR) NEGATIVE, Respiratory Syncytial Virus (PCR) NEGATIVE 02/27/21 08:35: POC Group A Strep Rapid Screen NEGATIVE CBC/BMP Laboratory Tests 02/27/21 08:22 Microbiology Microbiology 02/27/21 Group A Streptococcus Screen (JERALD), Received Pending Allergies Coded Allergies: topiramate (Verified Allergy, Unknown, can't swallow, 11/03/18) Home Medications Scheduled Etonogestrel/Ethinyl Estradiol (Etonogestrel-Ee Vaginal Ring) 1 Each Vag.ring, 1 RING PV ASDIRECTED, (Reported) Willie Morley MD Feb 27, 2021 14:39
[2021-02-27] MEDS ORDERED: ACETAMINOPHEN 325 MG/10.15 ML UDC PO PRN (15:00)
[2021-02-27] MEDS: AMPICILLIN SOD/SULBACTAM SOD 3 GM in D5W MINI-BAG PLUS 100 ML IV SCH ×2 (16:36→23:50)
[2021-02-27] MEDS: KETOROLAC 30 MG/ML 1ML VIAL IV PRN ×2 (17:32→23:51)
[2021-02-27 22:00] VITALS: BP 112/61
[2021-02-28] MEDS: AMPICILLIN SOD/SULBACTAM SOD 3 GM in D5W MINI-BAG PLUS 100 ML IV SCH ×4 (05:42→22:58)
[2021-02-28 06:00] VITALS: BP 106/69
[2021-02-28 06:17] LABS: BASO % 0.3 % (0.0-1.0); EOS # 0.2 10^3/uL (0.0-0.5); EOS % 2.1 % (0.0-3.0); HEMATOCRIT 39.8 % (36.0-47.0); HEMOGLOBIN 13.3 g/dl (12.0-15.5); LYMPH # 1.7 10^3/uL (1.5-5.0); LYMPH % 18.9 % (24.0-44.0); MEAN CORPUSCULAR HEMOGLOBIN 27.9 pg (27.0-33.0); MEAN CORPUSCULAR HGB CONC 33.4 g/dl (32.0-36.5); MEAN CORPUSCULAR VOLUME 83.4 fl (80.0-96.0); MONO # 0.7 10^3/uL (0.0-0.8); MONO % 7.7 % (2.0-8.0); NEUTROPHILS # 6.4 10^3/uL (1.5-8.5); NEUTROPHILS % 70.6 % (36.0-66.0); PLATELET COUNT, AUTOMATED 185 10^3/uL (150-450); RED BLOOD COUNT 4.77 10^6/uL (4.00-5.40); WHITE BLOOD COUNT 9.1 10^3/uL (4.0-10.0)
[2021-02-28 06:29] LABS: BLOOD UREA NITROGEN 12 MG/DL (7-18); CALCIUM LEVEL 8.2 MG/DL (8.5-10.1); CARBON DIOXIDE LEVEL 24 MEQ/L (21-32); CHLORIDE LEVEL 108 MEQ/L (98-107); GLOMERULAR FILTRATION RATE > 60.0 (>60); GLUCOSE, FASTING 83 MG/DL (70-100); POTASSIUM SERUM 3.7 MEQ/L (3.5-5.1); SODIUM LEVEL 138 MEQ/L (136-145)
[2021-02-28] MEDS ORDERED: ENOXAPARIN 40MG/0.4ML SYRINGE (J1650 PER 10MG) SC SCH (09:00)
--- NOTE | 2021-02-28 09:16 | IPNPDOC ---
Subjective Date Seen The patient was seen on 02/28/21. Subjective Chief Complaint/HPI Left parapharyngeal space infection Events since last encounter Maliha is a 25-year-old female who began to have sore throat on Monday morning. This was a minor in nature she describes it as no big deal. She woke up Monday morning unable to swallow with neck pain and sore throat. She came to the emergency room and was evaluated. CT scan showed a left peripharyngeal space infection no obvious abscess. White count was 15. Rapid strep negative. She was placed on Unasyn IV. She is now 24 hours post antibiotic. Maliha says she is feeling better she would report a 20% improvement in her neck pain on the left. Her swallowing has improved. She can now swallow water solids are still difficult. Yesterday she could not swallow at all. ENT: Reports: Head Aches, Ear Pain, Dysphagia, Sinus Congestion, Post Nasal Drip, Sore Throat, Epistaxis, Other Symptoms Objective Physical Examination General Exam: Positive: Alert, Cooperative Neck Exam: Positive: Other (Maliha continues to have some neck tenderness not as bad as yesterday.) Assessment /Plan Assessment She is improving on IV Unasyn. She continues to be afebrile white count has gone from 15-9. The neck pain is reduced by 20% and she is now able to swallow water. I would recommend we continue IV antibiotics for another 24 hours. If blood cultures return any positive results that may help guide oral therapy at home. Plan/VTE VTE Prophylaxis Ordered?: No VS, I&O, 24H, Alfonsobone Vital Signs/I&O Vital Signs Date Time Temp Pulse Resp B/P (MAP) Pulse Ox O2 Delivery O2 Flow Rate FiO2 02/28/21 06:00 97.9 74 18 106/69 (81) 96 Room Air I&O- Last 24 Hours up to 6 AM 02/28/21 06:00 Intake Total 840 ml Output Total 50 ml Balance 790 ml Laboratory Data 24H LABS Laboratory Tests 2 02/28/21 05:21: Immature Granulocyte % (Auto) 0.4, Neutrophils (%) (Auto) 70.6H, Lymphocytes (%) (Auto) 18.9L, Monocytes (%) (Auto) 7.7, Eosinophils (%) (Auto) 2.1, Basophils (%) (Auto) 0.3, Neutrophils # (Auto) 6.4, Lymphocytes # (Auto) 1.7, Monocytes # (Auto) 0.7, Eosinophils # (Auto) 0.2, Basophils # (Auto) 0.0, Nucleated Red Blood Cells % (auto) 0.0, Anion Gap 6L, Glomerular Filtration Rate > 60.0, Calcium Level 8.2L CBC/BMP Laboratory Tests 02/28/21 05:21 Microbiology Microbiology 02/27/21 Group A Streptococcus Screen (JERALD) - Final, Complete Willie Morley MD Feb 28, 2021 09:16
--- NOTE | 2021-02-28 13:12 | IPNPDOC ---
Text Note Date of Service The patient was seen on 02/28/21. NOTE SUBJECTIVE: -Can now swallow water ok, some improvements, solids still hurt a lot. -Afebrile otherwise. OBJECTIVE: VITALS: see below GENERAL: Alert, comfortable, in no acute distress HEENT: Normocephalic, atraumatic, EOMI, moist mucous membranes, without ulceration or exudate visualized in posterior oropharynx NECK: Supple, trachea midline, tender lymphadenopathy along the left anterior cervical chain CARDIOVASCULAR: Regular rate and rhythm, normal S1 and S2. No murmurs, rubs, or gallops RESPIRATORY: Clear to auscultation bilaterally with equal air entry bilaterally. No wheezing, rhonchi, or rales. ABDOMEN: Soft, nontender, nondistended, bowel sounds present EXTREMITIES: No edema. Pulses 2+/4 in bilateral upper and lower extremities SKIN: [place], warm, dry NEUROLOGIC: Alert and oriented x3 to person, place and time. No focal deficits appreciated PSYCHIATRIC: Mood and affect appropriate LABORATORY DATA: Reviewed WBC now downtrended to 9.1 from 15.2 IMAGING: - Neck CT (impression per radiologist report) Ill-defined low-attenuation mucosal and submucosal lesion along the left aspect of the oropharynx extends to the level of the epiglottis. Infectious process is favored. MICROBIOLOGY: Please see below. ASSESSMENT: 25-year-old W who presented with 1 day history of sore throat found to have acute pharyngeal lesion and admitted for IV antibiotics and ENT consultation PLAN: #Left peripharyngeal infection Rapid strep negative, throat culture pending. -Flu/RSV/Covid testing negative. Leukocytosis now downtrending Continue Unasyn day #2, if even better tomorrow AM, will transition to augmentin and discharge home with ENT follow up ENT/Dr. Morley consulted, appreciate recommendations Due to difficulty swallowing we will advance diet as tolerated Toradol PRN for pain DVT prophylaxis: SC Lovenox 40 daily VS,Fishbone, I+O VS, Fishbone, I+O Laboratory Tests 02/28/21 05:21 Vital Signs Date Time Temp Pulse Resp B/P (MAP) Pulse Ox O2 Delivery O2 Flow Rate FiO2 02/28/21 06:00 97.9 74 18 106/69 (81) 96 Room Air I&O- Last 24 Hours up to 6 AM 8/8/21 06:00 Intake Total 840 ml Output Total 50 ml Balance 790 ml LUCY OLSEN MD Feb 28, 2021 13:12
[2021-02-28 14:00] VITALS: BP 109/65
[2021-02-28 22:00] VITALS: BP 115/75
[2021-03-01] MEDS: AMPICILLIN SOD/SULBACTAM SOD 3 GM in D5W MINI-BAG PLUS 100 ML IV SCH ×2 (05:26→10:36)
[2021-03-01 05:55] LABS: BASO % 0.3 % (0.0-1.0); EOS # 0.2 10^3/uL (0.0-0.5); EOS % 2.8 % (0.0-3.0); HEMOGLOBIN 13.7 g/dl (12.0-15.5); LYMPH # 2.1 10^3/uL (1.5-5.0); MEAN CORPUSCULAR HGB CONC 33.4 g/dl (32.0-36.5); MEAN CORPUSCULAR VOLUME 83.8 fl (80.0-96.0); MONO # 0.5 10^3/uL (0.0-0.8); MONO % 8.5 % (2.0-8.0); NEUTROPHILS # 3.5 10^3/uL (1.5-8.5); NEUTROPHILS % 55.1 % (36.0-66.0); PLATELET COUNT, AUTOMATED 183 10^3/uL (150-450); RED BLOOD COUNT 4.89 10^6/uL (4.00-5.40); WHITE BLOOD COUNT 6.4 10^3/uL (4.0-10.0)
[2021-03-01 06:00] VITALS: BP 119/71
[2021-03-01 06:26] LABS: BLOOD UREA NITROGEN 8 MG/DL (7-18); CALCIUM LEVEL 9.1 MG/DL (8.5-10.1); CARBON DIOXIDE LEVEL 26 MEQ/L (21-32); CHLORIDE LEVEL 108 MEQ/L (98-107); CREATININE FOR GFR 0.72 MG/DL (0.55-1.30); GLOMERULAR FILTRATION RATE > 60.0 (>60); GLUCOSE, FASTING 81 MG/DL (70-100); POTASSIUM SERUM 4.4 MEQ/L (3.5-5.1); SODIUM LEVEL 140 MEQ/L (136-145)
[2021-03-01] MEDS ORDERED: AUGM875T28 PO (09:11)
[2021-03-01] MEDS ORDERED: TESS100C PO (09:11)
--- NOTE | 2021-03-01 09:37 | DS.PDOC ---
Discharge Summary General Date of Admission Feb 27, 2021 at 08:04 Date of Discharge 03/01/2021 Attending Physician: LUCY OLSEN MD Discharge Summary PROCEDURES PERFORMED DURING STAY:None ADMITTING DIAGNOSES: Pharyngitis DISCHARGE DIAGNOSES: Acute parapharyngeal infection COMPLICATIONS/CHIEF COMPLAINT: Oropharynx Infection. HISTORY OF PRESENT ILLNESS: 25-year-old W who presented to the emergency department due to sudden onset of a sore throat for 1 day. She reported that her throat was so sore that it was been painful to swallow. She was a having a hard time swallowing especially pills and food but was able to clear her secretions. She had a nonproductive co ugh with otherwise no history of fever, sick contacts, hemoptysis and no recent travel. She reported that the pain in her throat appeared to be spreading up toward her ears thought she denied fullness and sinus congestion. HOSPITAL COURSE: On evaluation the emergency department, the patient was found to have an elevated white blood cell count and CT of the neck shows a lesion in the mucosal and submucosal layers of the oropharynx, approaching the epiglottis. ENT was called by the ER physician and Dr. Morley recommended admission with IV antibiotics and ENT consultation. She was started on unasyn with resolution of the leukocytosis and improvement in her symptoms. ENT recommended continued antibiotics and she will be discharged home now with augmentin to complete a 10d course with close ENT and PCP follow up. I have counselled her to seriously consider quitting smoking. DISCHARGE MEDICATIONS: Please see below. ALLERGIES: Please see below. PHYSICAL EXAMINATION ON DISCHARGE: VITAL SIGNS: Please see below. GENERAL: Alert, comfortable, in no acute distress HEENT: Normocephalic, atraumatic, EOMI, moist mucous membranes, without ulceration or exudate visualized in posterior oropharynx NECK: Supple, trachea midline, tender lymphadenopathy along the left anterior cervical chain CARDIOVASCULAR: Regular rate and rhythm, normal S1 and S2. No murmurs, rubs, or gallops RESPIRATORY: Clear to auscultation bilaterally with equal air entry bilaterally. No wheezing, rhonchi, or rales. ABDOMEN: Soft, nontender, nondistended, bowel sounds present EXTREMITIES: No edema. Pulses 2+/4 in bilateral upper and lower extremities SKIN: Tibbie, warm, dry NEUROLOGIC: Alert and oriented x3 to person, place and time. No focal deficits appreciated PSYCHIATRIC: Mood and affect appropriate LABORATORY DATA: Please see below. IMAGING: - Neck CT (impression per radiologist report) Ill-defined low-attenuation mucosal and submucosal lesion along the left aspect of the oropharynx extends to the level of the epiglottis. Infectious process is favored. PROGNOSIS: Good ACTIVITY: As tolerated DIET: As tolerated, regular DISCHARGE PLAN: Home with 10d of augmentin DISPOSITION: Home DISCHARGE INSTRUCTIONS: Home with 10d of augmentin. Follow up with ENT and PCP within 1 week ITEMS TO FOLLOWUP ON ON OUTPATIENT: Acute parapharyngeal infection resolution DISCHARGE CONDITION: Stable. TIME SPENT ON DISCHARGE: 41 minutes. Vital Signs/I&Os Vital Signs Date Time Temp Pulse Resp B/P (MAP) Pulse Ox O2 Delivery O2 Flow Rate FiO2 03/01/21 06:00 97.4 74 18 119/71 (87) 99 Room Air I&O- Last 24 Hours up to 6 AM 03/01/21 06:00 Intake Total 1870 ml Output Total 2575 ml Balance -705 ml Laboratory Data Labs 24H Laboratory Tests 2 03/01/21 05:22: Immature Granulocyte % (Auto) 0.3, Neutrophils (%) (Auto) 55.1, Lymphocytes (%) (Auto) 33.0, Monocytes (%) (Auto) 8.5H, Eosinophils (%) (Auto) 2.8, Basophils (%) (Auto) 0.3, Neutrophils # (Auto) 3.5, Lymphocytes # (Auto) 2.1, Monocytes # (Auto) 0.5, Eosinophils # (Auto) 0.2, Basophils # (Auto) 0.0, Nucleated Red Blood Cells % (auto) 0.0, Anion Gap 6L, Glomerular Filtration Rate > 60.0, Calcium Level 9.1 CBC/BMP Laboratory Tests 03/01/21 05:22 Microbiology Microbiology 02/27/21 Group A Streptococcus Screen ([facility]ERALD) - Final, Complete Discharge Medications Scheduled Amoxicillin/Potassium Clav (Augmentin 875-125 Tablet) 1 Each Tablet, 1 TAB PO BID Etonogestrel/Ethinyl Estradiol (Etonogestrel-Ee Vaginal Ring) 1 Each Vag.ring, 1 RING PV ASDIRECTED, (Reported) Scheduled PRN Benzonatate (Tessalon Perle) 100 Mg Capsule, 1 CAP PO TIDP PRN for COUGH Allergies Coded Allergies: topiramate (Verified Allergy, Unknown, can't swallow, 11/03/18) LUCY OLSEN MD Mar 01, 2021 09:37
== END 2021-03-01 11:40 | disposition home or self-care (01) ==
LOC: M ED 08:03 → M ED INP 08:04 → ENRESERV 13:10 → M MSPAV 13:39
PROVIDERS: ADMIT Internal Medicine; ATTEND Internal Medicine
DX: J39.1 Other abscess of pharynx (principal); R05 Cough; D72.829 Elevated white blood cell count, unspecified; F17.218 Nicotine dependence, cigarettes, with other nicotine-induced disorders; Z79.899 Other long term (current) drug therapy; Z88.8 Allergy status to other drugs, medicaments and biological substances
CPT/HCPCS: 36415; 70491; 80048; 85025; 87631; 87880; 94760; 96365; 96366; 96375; 96376; 99285; J1885; Q9967

== ENCOUNTER → 2021-09-15 | Outpatient (REF) | payer OTHER ==
[~2021-09-15] MED LIST changes: +AUGM875T28 PO; +ETON1VAG3 PV
== END ==
LOC: M SFHCWAGY 13:01
PROVIDERS: ATTEND Advanced Practice Midwife
DX: Z12.4 Encounter for screening for malignant neoplasm of cervix (principal); R87.611 Atypical squamous cells cannot exclude high grade squamous intraepithelial lesion on cytologic smear of cervix (ASC-H)
CPT/HCPCS: 87624; G0123; G0463

== ENCOUNTER 2021-12-23 14:12 | Emergency (ER) | payer MEDICAID, OTHER ==
[~2021-12-23] VITALS: Ht 170.2 cm; Wt 80.0 kg
[2021-12-23 14:13] VITALS: BP 120/66
[2021-12-23 19:23] LABS: BASO % 0.2 % (0.0-1.0); EOS # 0.2 10^3/uL (0.0-0.5); EOS % 2.8 % (0.0-3.0); HEMATOCRIT 37.1 % (36.0-47.0); HEMOGLOBIN 11.9 g/dl (12.0-15.5); LYMPH # 2.4 10^3/uL (1.5-5.0); LYMPH % 28.9 % (24.0-44.0); MEAN CORPUSCULAR HEMOGLOBIN 25.8 pg (27.0-33.0); MEAN CORPUSCULAR HGB CONC 32.1 g/dl (32.0-36.5); MEAN CORPUSCULAR VOLUME 80.3 fl (80.0-96.0); MONO # 0.6 10^3/uL (0.0-0.8); MONO % 7.1 % (2.0-8.0); NEUTROPHILS # 5.1 10^3/uL (1.5-8.5); NEUTROPHILS % 60.6 % (36.0-66.0); PLATELET COUNT, AUTOMATED 198 10^3/uL (150-450); RED BLOOD COUNT 4.62 10^6/uL (4.00-5.40); WHITE BLOOD COUNT 8.4 10^3/uL (4.0-10.0)
== END 2021-12-23 20:19 | disposition home or self-care (01) ==
LOC: M ED 14:12
DX: O03.9 Complete or unspecified spontaneous abortion without complication (principal); G43.909 Migraine, unspecified, not intractable, without status migrainosus; F41.9 Anxiety disorder, unspecified; F32.A Depression, unspecified; F43.10 Post-traumatic stress disorder, unspecified; F17.200 Nicotine dependence, unspecified, uncomplicated; Z88.8 Allergy status to other drugs, medicaments and biological substances; Z79.899 Other long term (current) drug therapy

== ENCOUNTER → 2021-12-25 | Outpatient (CLI) | payer MEDICAID | LOC: M LAB 10:46 | PROVIDERS: ATTEND Physician Assistant Medical | DX: O03.9 Complete or unspecified spontaneous abortion without complication (principal) ==

== ENCOUNTER → 2022-01-06 | Outpatient (CLI) | payer MEDICAID | LOC: M LAB 12:00 | PROVIDERS: ATTEND Obstetrics & Gynecology | DX: Z34.90 Encounter for supervision of normal pregnancy, unspecified, unspecified trimester (principal) ==

== ENCOUNTER → 2022-03-15 | Outpatient (REF) ==
[~2022-03-15] MED LIST changes: +ETON68IM SC; -NEXP1IMP SC
== END ==
LOC: M EMP 15:58
PROVIDERS: ATTEND Family Medicine
DX: Z20.822 Contact with and (suspected) exposure to COVID-19 (principal); Z11.52 Encounter for screening for COVID-19

== ENCOUNTER → 2022-03-22 | Outpatient (REF) | LOC: M EMP 10:52 | PROVIDERS: ATTEND Family Medicine | DX: Z11.52 Encounter for screening for COVID-19 (principal) ==

== ENCOUNTER → 2022-03-29 | Outpatient (REF) | LOC: M LABSMTC 09:34 | PROVIDERS: ATTEND Family Medicine | DX: Z11.52 Encounter for screening for COVID-19 (principal) ==

== ENCOUNTER 2022-06-16 17:46 | Emergency (ER) | payer MEDICAID, OTHER, SELFPAY ==
[~2022-06-16] VITALS: Ht 170.2 cm; Wt 78.6 kg
[2022-06-16 17:47] VITALS: BP 119/69
== END 2022-06-16 21:10 | disposition home or self-care (01) ==
LOC: M ED 17:46
DX: O26.891 Other specified pregnancy related conditions, first trimester (principal); M71.22 Synovial cyst of popliteal space [Baker], left knee; G43.909 Migraine, unspecified, not intractable, without status migrainosus; F41.9 Anxiety disorder, unspecified; F43.10 Post-traumatic stress disorder, unspecified; F17.200 Nicotine dependence, unspecified, uncomplicated; Z3A.11 11 weeks gestation of pregnancy; Z88.8 Allergy status to other drugs, medicaments and biological substances

== ENCOUNTER → 2022-06-23 | Outpatient (CLI) | payer OTHER | LOC: M SOG 07:52 | PROVIDERS: ATTEND Orthopaedic Surgery Adult Reconstructive Orthopaedic Surgery | DX: M25.562 Pain in left knee (principal) ==

== ENCOUNTER → 2022-07-01 | Outpatient (CLI) | payer OTHER, MEDICAID ==
[2022-07-01 12:50] LABS: HEMATOCRIT 37.3 % (36.0-47.0); HEMOGLOBIN 12.4 g/dl (12.0-15.5); MEAN CORPUSCULAR HEMOGLOBIN 26.4 pg (27.0-33.0); MEAN CORPUSCULAR HGB CONC 33.2 g/dl (32.0-36.5); MEAN CORPUSCULAR VOLUME 79.5 fl (80.0-96.0); PLATELET COUNT, AUTOMATED 196 10^3/uL (150-450); RED BLOOD COUNT 4.69 10^6/uL (4.00-5.40); WHITE BLOOD COUNT 8.3 10^3/uL (4.0-10.0)
[2022-07-01 13:39] LABS: HIV 1&2 SCREEN CENTAUR NEGATIVE (NEGATIVE)
[2022-07-01 13:48] LABS: HEPATITIS C VIRUS ABY INDEX 0.1 INDEX (<0.8)
[2022-07-01 14:20] LABS: GC DNA AMPLIFICATION NEGATIVE (NEGATIVE)
== END ==
LOC: M LAB 12:07
PROVIDERS: ATTEND Specialist
DX: Z34.81 Encounter for supervision of other normal pregnancy, first trimester (principal); Z3A.00 Weeks of gestation of pregnancy not specified

== ENCOUNTER → 2022-07-27 | Outpatient (CLI) | payer OTHER, MEDICAID | LOC: M PLAIMG 16:49 | PROVIDERS: ATTEND Orthopaedic Surgery Adult Reconstructive Orthopaedic Surgery | DX: M23.92 Unspecified internal derangement of left knee (principal) ==

== ENCOUNTER → 2022-08-11 | Outpatient (CLI) | payer OTHER, MEDICAID ==
[2022-08-11 11:36] LABS: BASO % 0.4 % (0.0-1.0); EOS # 0.2 10^3/uL (0.0-0.5); EOS % 1.7 % (0.0-3.0); HEMATOCRIT 39.1 % (36.0-47.0); HEMOGLOBIN 12.9 g/dl (12.0-15.5); LYMPH # 1.8 10^3/uL (1.5-5.0); LYMPH % 18.8 % (24.0-44.0); MEAN CORPUSCULAR HEMOGLOBIN 27.6 pg (27.0-33.0); MEAN CORPUSCULAR VOLUME 83.5 fl (80.0-96.0); MONO # 0.6 10^3/uL (0.0-0.8); MONO % 6.2 % (2.0-8.0); NEUTROPHILS # 6.8 10^3/uL (1.5-8.5); NEUTROPHILS % 71.7 % (36.0-66.0); PLATELET COUNT, AUTOMATED 204 10^3/uL (150-450); RED BLOOD COUNT 4.68 10^6/uL (4.00-5.40); WHITE BLOOD COUNT 9.4 10^3/uL (4.0-10.0)
[2022-08-11 11:50] LABS: ERYTHROCYTE SEDIMENTATION RATE 17 mm/hr (0-20)
[2022-08-11 12:02] LABS: URIC ACID 3.7 MG/DL (3.1-7.8)
[2022-08-11 12:05] LABS: RHEUMATOID FACTOR QUANT 4.6 IU/ML (<14)
[2022-08-11 12:07] LABS: ALBUMIN 3.3 G/DL (3.2-5.2); ALKALINE PHOSPHATASE 79 U/L (46-116); ALT/SGPT 48 U/L (7.0-40); AST/SGOT 21 U/L (<34); BILIRUBIN,TOTAL 0.3 MG/DL (0.3-1.2); BLOOD UREA NITROGEN 9 MG/DL (9-23); CALCIUM LEVEL 8.9 MG/DL (8.5-10.1); CARBON DIOXIDE LEVEL 24 MMOL/L (20-31); CHLORIDE LEVEL 105 MMOL/L (98-107); CREATININE FOR GFR 0.43 MG/DL (0.55-1.30); GLOMERULAR FILTRATION RATE > 60.0 (>60); GLUCOSE, FASTING 102 MG/DL (60-100); POTASSIUM SERUM 3.6 MMOL/L (3.5-5.1); SODIUM LEVEL 137 MMOL/L (136-145); TOTAL PROTEIN 6.6 G/DL (5.7-8.2)
[2022-08-12 23:08] LABS: ANA (HEP2) Positive (.)
== END ==
LOC: M LAB 10:42
PROVIDERS: ATTEND Orthopaedic Surgery Adult Reconstructive Orthopaedic Surgery
DX: M12.862 Other specific arthropathies, not elsewhere classified, left knee (principal)

== ENCOUNTER → 2022-08-18 | Outpatient (CLI) | payer OTHER, MEDICAID | LOC: M WHC 11:26 | PROVIDERS: ATTEND Specialist | DX: Z34.82 Encounter for supervision of other normal pregnancy, second trimester (principal); Z3A.20 20 weeks gestation of pregnancy ==

== ENCOUNTER → 2022-09-27 | Outpatient (CLI) | payer MEDICAID, OTHER ==
[2022-09-27 11:38] LABS: HEMATOCRIT 34.2 % (36.0-47.0); HEMOGLOBIN 11.3 g/dl (12.0-15.5); MEAN CORPUSCULAR HEMOGLOBIN 29.4 pg (27.0-33.0); MEAN CORPUSCULAR VOLUME 89.1 fl (80.0-96.0); PLATELET COUNT, AUTOMATED 169 10^3/uL (150-450); RED BLOOD COUNT 3.84 10^6/uL (4.00-5.40); WHITE BLOOD COUNT 8.9 10^3/uL (4.0-10.0)
[2022-09-27 13:45] LABS: GC DNA AMPLIFICATION NEGATIVE (NEGATIVE)
== END ==
LOC: M PLALAB 07:39
PROVIDERS: ATTEND Obstetrics & Gynecology
DX: Z34.82 Encounter for supervision of other normal pregnancy, second trimester (principal)

== ENCOUNTER → 2022-10-03 | Outpatient (CLI) | payer OTHER, MEDICAID | LOC: M LAB 07:45 | PROVIDERS: ATTEND Obstetrics & Gynecology | DX: O99.810 Abnormal glucose complicating pregnancy (principal) ==

== ENCOUNTER 2022-10-15 17:27 | Outpatient (CLI) | payer OTHER, MEDICAID ==
[~2022-10-15] VITALS: Ht 170.2 cm; Wt 84.5 kg
[2022-10-15] MEDS ORDERED: FLINSTONE VITAMINS PO (17:51)
[2022-10-15 17:53] VITALS: BP 120/77
[2022-10-15] MEDS ORDERED: HOME MED LIST COMPLETE! XX SCH (18:05)
[2022-10-15] MEDS ORDERED: CYCL-707 PO (19:33)
== END 2022-10-15 19:30 | disposition home or self-care (01) ==
LOC: M LDO 17:27
PROVIDERS: ATTEND Obstetrics & Gynecology
DX: O26.893 Other specified pregnancy related conditions, third trimester (principal); M54.50 Low back pain, unspecified; R10.2 Pelvic and perineal pain; Z3A.29 29 weeks gestation of pregnancy
CPT/HCPCS: 59025; 81001; G0463

== ENCOUNTER 2022-11-07 10:40 | Outpatient (CLI) | payer MEDICAID ==
[~2022-11-07] VITALS: Ht 170.2 cm; Wt 85.3 kg
[~2022-11-07 10:40] MED LIST changes: +CYCL-707 PO; +FLINSTONE VITAMINS PO
[2022-11-07 11:04] VITALS: BP 107/59
[2022-11-07] MEDS ORDERED: HOME MED LIST COMPLETE! XX SCH (11:30)
== END 2022-11-07 11:48 | disposition home or self-care (01) ==
LOC: M LDO 10:40
PROVIDERS: ATTEND Advanced Practice Midwife
DX: O26.893 Other specified pregnancy related conditions, third trimester (principal); N89.8 Other specified noninflammatory disorders of vagina; O40.3XX9 Polyhydramnios, third trimester, other fetus; O99.333 Smoking (tobacco) complicating pregnancy, third trimester; F17.210 Nicotine dependence, cigarettes, uncomplicated; Z3A.32 32 weeks gestation of pregnancy
CPT/HCPCS: 59025; G0463

== ENCOUNTER → 2022-12-06 | Outpatient (REF) | payer MEDICAID | LOC: M SFHCWAGY 12:57 | PROVIDERS: ATTEND Obstetrics & Gynecology | DX: Z36.85 Encounter for antenatal screening for Streptococcus B (principal) ==

== ENCOUNTER → 2022-12-21 | Outpatient (CLI) | payer MEDICAID ==
[~2022-12-21] MED LIST changes: +ACET-683 PO
== END ==
LOC: M RAD 10:41
PROVIDERS: ATTEND Advanced Practice Midwife
DX: O40.1XX0 Polyhydramnios, first trimester, not applicable or unspecified (principal)

== ENCOUNTER 2022-12-24 07:19 | Inpatient (IN) | payer MEDICAID ==
[2022-12-24] VITALS (23 sets, daily range): BP systolic 97–147; BP diastolic 54–81
[~2022-12-24] VITALS: Ht 170.2 cm; Wt 85.8 kg
[~2022-12-24 07:19] MED LIST changes: -ACET-683 PO
[2022-12-24] MEDS ORDERED: HOME MED LIST COMPLETE! XX SCH (07:35)
[2022-12-24] MEDS ORDERED: CARBOPROST TROMETHAMINE 250 MCG/ML AMP IM PRN (07:55)
[2022-12-24] MEDS ORDERED: OXYTOCIN DRIP 30 UNITS in IV 1 EA IV PRN (07:55)
[2022-12-24] MEDS ORDERED: TRANEXAMIC ACID INJection 1,000 MG in NS 100 ML IV PRN (07:55)
[2022-12-24] MEDS ORDERED: LIDOCAINE 1% MDV 20ML VIAL INFIL PRN (07:55)
[2022-12-24] MEDS ORDERED: LACTATED RINGER'S 1000 ML IV STA (07:55)
[2022-12-24 08:00] LABS: HEMATOCRIT 34.5 % (36.0-47.0); HEMOGLOBIN 11.4 g/dl (12.0-15.5); MEAN CORPUSCULAR HEMOGLOBIN 27.8 pg (27.0-33.0); MEAN CORPUSCULAR VOLUME 84.1 fl (80.0-96.0); PLATELET COUNT, AUTOMATED 279 10^3/uL (150-450); WHITE BLOOD COUNT 10.1 10^3/uL (4.0-10.0)
[2022-12-24] MEDS: miSOPROStol 50MCG 1/2 TABLET PO PRN ×2 (10:08→17:14)
[2022-12-24] MEDS ORDERED: OXYTOCIN DRIP 30 UNITS in IV 1 EA IV SCH (20:10)
[2022-12-24] MEDS ORDERED: ACETAMINOPHEN 500 MG TAB PO ONE (21:00)
[2022-12-24] MEDS ORDERED: FENTANYL 2MCG/ML ROPIVACAINE 0.2% IN 0.9% NACL 100ML IVBAG As Ordered ONE (22:29)
[2022-12-24] MEDS ORDERED: EPIDURAL/PCA KEYS XX PRN (22:35)
[2022-12-24] MEDS ORDERED: FENTANYL/ROPIVACAINE/NACL BAG 100 ML EPIDURAL SCH (22:35)
[2022-12-24] MEDS ORDERED: LR 500 ML IV PRN (22:35)
[2022-12-24] MEDS ORDERED: NALOXONE INJ 0.4MG/1ML VIAL IV PRN (22:35)
[2022-12-24] MEDS ORDERED: ePHEDrine SULFATE 25 MG/5 ML(5MG/ML) SYRINGE IVP PRN (22:35)
[2022-12-24] MEDS ORDERED: diphenhydrAMINE 50MG/ML VIAL IV PRN (22:35)
[2022-12-24] MEDS ORDERED: ONDANSETRON 4MG 2ML VIAL IV PRN (22:35)
[2022-12-25] MEDS ORDERED: RHOGAM 300MCG (1500IU) INJ IM SCH (01:25)
[2022-12-25] MEDS ORDERED: ACETAMINOPHEN TAB 650MG DOSE (2X325MG) PO PRN (01:25)
[2022-12-25] MEDS ORDERED: ACETAMINOPHEN 500 MG TAB PO PRN (01:25)
[2022-12-25] MEDS ORDERED: METHYLERGONOVINE MALEATE 0.2 MG TAB PO PRN (01:25)
[2022-12-25] MEDS ORDERED: OXYTOCIN DRIP 30 UNITS in IV 1 EA IV SCH (01:25)
[2022-12-25] MEDS ORDERED: IBUPROFEN 800 MG TAB PO PRN (01:25)
[2022-12-25] MEDS ORDERED: DOCUSATE SODIUM 100MG CAPSULE PO PRN (01:25)
[2022-12-25] MEDS ORDERED: IBUPROFEN 600MG TAB PO PRN (01:25)
[2022-12-25] MEDS ORDERED: DIBUCAINE 1% OINTMENT 30GM TOP PRN (01:25)
[2022-12-25 01:53] LABS: CORD GAS ABE V -4.7; CORD GAS HCO3 V 24.2 MMOL/L; CORD GAS O2 SAT V 34.4 %; CORD GAS PCO2 V 59.5 mmHg; CORD GAS PH V 7.228 UNITS; CORD GAS PO2 V 17.9 mmHg; CORD GAS TCO2 V 26.1 MMOL/L
[2022-12-25 01:54] LABS: CORD GAS ABE A -3.4; CORD GAS HCO3 A 22.6 MMOL/L; CORD GAS O2 SAT A 41.4 %; CORD GAS PCO2 A 44.1 mmHg; CORD GAS PH A 7.328 UNITS; CORD GAS PO2 A 18.8 mmHg; CORD GAS SBC A 20.1 MMOL/L
[2022-12-25 03:20] VITALS: BP 115/64; O2SAT 98
[2022-12-25 06:00] VITALS: BP 112/61; O2SAT 99
[2022-12-25] MEDS: PRENATAL VITAMINS CHEWABLE TABLET PO SCH (08:54)
[2022-12-25 17:58] VITALS: BP 129/87; O2SAT 98
[2022-12-26 05:59] VITALS: BP 118/62; O2SAT 97
[2022-12-26] MEDS: PRENATAL VITAMINS CHEWABLE TABLET PO SCH (09:00)
[2022-12-26] MEDS ORDERED: ACET-683 PO (10:18)
[2022-12-26] MEDS ORDERED: IBUP80TA PO (10:18)
[2022-12-27] MEDS ORDERED: MEASLES,MUMPS,RUBELLA VACCINE INJ (MMR-II) SC.IMMUN ONE (09:00)
== END 2022-12-26 12:50 | disposition home or self-care (01) | DRG 560 ==
LOC: M LDI 07:19 → M OBS 12-25 03:27
PROVIDERS: ADMIT Obstetrics & Gynecology; ATTEND Obstetrics & Gynecology
PROC: 3E0P7VZ Introduction of Hormone into Female Reproductive, Via Natural or Artificial Opening (ICD-10-PCS; 2022-12-24)
PROC: 10E0XZZ Delivery of Products of Conception, External Approach (ICD-10-PCS; principal; 2022-12-25)
PROC: 10907ZC Drainage of Amniotic Fluid, Therapeutic from Products of Conception, Via Natural or Artificial Opening (ICD-10-PCS; 2022-12-25)
DX: O40.3XX0 Polyhydramnios, third trimester, not applicable or unspecified (principal); Z37.0 Single live birth; Z3A.39 39 weeks gestation of pregnancy

== ENCOUNTER → 2023-03-21 | Outpatient (CLI) | payer MEDICAID ==
[~2023-03-21] MED LIST changes: +ACET-683 PO; -MAXA10TA15 PO; +RIZA10TA66 PO
[2023-03-21 11:31] LABS: BASO % 0.4 % (0.0-1.0); EOS # 0.2 10^3/uL (0.0-0.5); EOS % 3.3 % (0.0-3.0); HEMATOCRIT 39.1 % (36.0-47.0); HEMOGLOBIN 12.6 g/dl (12.0-15.5); LYMPH # 2.1 10^3/uL (1.5-5.0); LYMPH % 40.5 % (24.0-44.0); MEAN CORPUSCULAR HEMOGLOBIN 26.5 pg (27.0-33.0); MEAN CORPUSCULAR HGB CONC 32.2 g/dl (32.0-36.5); MEAN CORPUSCULAR VOLUME 82.1 fl (80.0-96.0); MONO # 0.4 10^3/uL (0.0-0.8); MONO % 7.5 % (2.0-8.0); NEUTROPHILS # 2.4 10^3/uL (1.5-8.5); NEUTROPHILS % 47.9 % (36.0-66.0); PLATELET COUNT, AUTOMATED 221 10^3/uL (150-450); RED BLOOD COUNT 4.76 10^6/uL (4.00-5.40); WHITE BLOOD COUNT 5.1 10^3/uL (4.0-10.0)
[2023-03-21 11:41] LABS: ERYTHROCYTE SEDIMENTATION RATE 3 mm/hr (0-20)
[2023-03-21 12:02] LABS: C REACTIVE PROTEIN QUANTITATIV < 0.40 MG/DL (<1.0)
[2023-03-21 12:03] LABS: ALKALINE PHOSPHATASE 68 U/L (46-116); ALT/SGPT 36 U/L (7.0-40); AST/SGOT 12 U/L (<34); BILIRUBIN,TOTAL 0.6 MG/DL (0.3-1.2); BLOOD UREA NITROGEN 12 MG/DL (9-23); CALCIUM LEVEL 8.8 MG/DL (8.5-10.1); CARBON DIOXIDE LEVEL 26 MMOL/L (20-31); CHLORIDE LEVEL 107 MMOL/L (98-107); CREATININE FOR GFR 0.67 MG/DL (0.55-1.30); GLOMERULAR FILTRATION RATE > 60.0 (>60); GLUCOSE, FASTING 87 MG/DL (60-100); POTASSIUM SERUM 4.3 MMOL/L (3.5-5.1); RHEUMATOID FACTOR QUANT 3.5 IU/ML (<14); SODIUM LEVEL 138 MMOL/L (136-145); TOTAL PROTEIN 6.6 G/DL (5.7-8.2)
[2023-03-22 23:07] LABS: ANA (HEP2) Negative (.); CYCLIC CITRULLINATED PEPTIDE 8 units (0-19)
== END ==
LOC: M LAB 11:08
PROVIDERS: ATTEND Physician Assistant
DX: M12.862 Other specific arthropathies, not elsewhere classified, left knee (principal); M23.92 Unspecified internal derangement of left knee

== ENCOUNTER → 2023-05-24 | Outpatient (REF) | payer MEDICAID | LOC: M PLALAB 12:12 | PROVIDERS: ATTEND Advanced Practice Midwife | DX: Z12.4 Encounter for screening for malignant neoplasm of cervix (principal) ==

== ENCOUNTER → 2023-06-02 | Outpatient (CLI) | payer MEDICAID | LOC: M WHC 11:54 | PROVIDERS: ATTEND Advanced Practice Midwife | DX: N83.291 Other ovarian cyst, right side (principal); N83.292 Other ovarian cyst, left side; N94.10 Unspecified dyspareunia ==

== ENCOUNTER 2023-06-23 09:07 | Emergency (ER) | payer MEDICAID ==
[~2023-06-23] VITALS: Ht 170.2 cm; Wt 77.7 kg
[2023-06-23] MEDS ORDERED: ETON68IM SC (09:18)
[2023-06-23] MEDS ORDERED: IBUPROFEN 600MG TAB PO ONE (09:55)
[2023-06-23] MEDS ORDERED: MELO15TA28 PO (10:21)
[2023-06-23 11:18] VITALS: BP 127/81; TEMP 98.3; O2SAT 98
== END 2023-06-23 11:20 | disposition home or self-care (01) ==
LOC: M ED 09:07
DX: M25.552 Pain in left hip (principal); G89.29 Other chronic pain; M25.562 Pain in left knee; Z88.8 Allergy status to other drugs, medicaments and biological substances

== ENCOUNTER → 2023-06-30 | Outpatient (CLI) | payer MEDICAID ==
[~2023-06-30] MED LIST changes: +MELO15TA28 PO
== END ==
LOC: M RAD 13:18
PROVIDERS: ATTEND Advanced Practice Midwife
DX: N83.201 Unspecified ovarian cyst, right side (principal); N83.202 Unspecified ovarian cyst, left side

== ENCOUNTER → 2023-08-28 | Outpatient (REF) | payer MEDICAID ==
[2023-08-28 17:17] LABS: BASO % 0.5 % (0.0-1.0); EOS # 0.2 10^3/uL (0.0-0.5); EOS % 3.3 % (0.0-3.0); HEMATOCRIT 40.5 % (36.0-47.0); LYMPH # 1.9 10^3/uL (1.5-5.0); MEAN CORPUSCULAR HEMOGLOBIN 26.3 pg (27.0-33.0); MEAN CORPUSCULAR HGB CONC 32.1 g/dl (32.0-36.5); MONO # 0.4 10^3/uL (0.0-0.8); MONO % 5.4 % (2.0-8.0); NEUTROPHILS % 61.5 % (36.0-66.0); PLATELET COUNT, AUTOMATED 242 10^3/uL (150-450); RED BLOOD COUNT 4.94 10^6/uL (4.00-5.40); WHITE BLOOD COUNT 6.4 10^3/uL (4.0-10.0)
[2023-08-28 17:37] LABS: ALKALINE PHOSPHATASE 72 U/L (46-116); ALT/SGPT 15 U/L (7.0-40); AST/SGOT 12 U/L (<34); BILIRUBIN,TOTAL 0.4 MG/DL (0.3-1.2); BLOOD UREA NITROGEN 12 MG/DL (9-23); CALCIUM LEVEL 8.8 MG/DL (8.5-10.1); CARBON DIOXIDE LEVEL 26 MMOL/L (20-31); CHLORIDE LEVEL 105 MMOL/L (98-107); CHOLESTEROL LEVEL 122 MG/DL (<200); CHOLESTEROL RISK RATIO 3.33 (<5); GLOMERULAR FILTRATION RATE > 60.0 (>60); GLUCOSE, FASTING 70 MG/DL (60-100); HDL CHOLESTEROL 36.6 MG/DL (>40); LDL CHOLESTEROL 68.4 MG/DL (<100); NON-HDL-C 85.4 MG/DL; SODIUM LEVEL 138 MMOL/L (136-145); TOTAL PROTEIN 6.8 G/DL (5.7-8.2); TRIGLYCERIDES LEVEL 85 MG/DL (<150)
[2023-08-28 17:39] LABS: THYROID STIMULATING HORMONE 0.943 uIU/ML (0.55-4.78)
[2023-08-28 17:40] LABS: TOTAL 25(OH) VITAMIN D 15.1 NG/ML (20.0-100.0)
== END ==
LOC: M LAB REF 16:38
PROVIDERS: ATTEND Nurse Practitioner Family
DX: E66.3 Overweight (principal); E55.9 Vitamin D deficiency, unspecified; R53.83 Other fatigue

== ENCOUNTER → 2023-09-08 | Outpatient (CLI) | payer MEDICAID | LOC: M RAD 16:00 | PROVIDERS: ATTEND Nurse Practitioner Family | DX: E04.9 Nontoxic goiter, unspecified (principal) ==

== ENCOUNTER → 2023-10-05 | Outpatient (CLI) | payer MEDICAID ==
[2023-10-05 14:29] LABS: BASO % 0.4 % (0.0-1.0); EOS # 0.2 10^3/uL (0.0-0.5); EOS % 2.6 % (0.0-3.0); HEMATOCRIT 41.6 % (36.0-47.0); HEMOGLOBIN 13.3 g/dl (12.0-15.5); LYMPH # 1.8 10^3/uL (1.5-5.0); LYMPH % 22.4 % (24.0-44.0); MEAN CORPUSCULAR HEMOGLOBIN 25.9 pg (27.0-33.0); MEAN CORPUSCULAR VOLUME 80.9 fl (80.0-96.0); MONO # 0.5 10^3/uL (0.0-0.8); MONO % 6.6 % (2.0-8.0); NEUTROPHILS # 5.5 10^3/uL (1.5-8.5); NEUTROPHILS % 67.8 % (36.0-66.0); PLATELET COUNT, AUTOMATED 238 10^3/uL (150-450); RED BLOOD COUNT 5.14 10^6/uL (4.00-5.40); WHITE BLOOD COUNT 8.2 10^3/uL (4.0-10.0)
[2023-10-05 14:42] LABS: ERYTHROCYTE SEDIMENTATION RATE 9 mm/hr (0-20)
[2023-10-05 14:54] LABS: C REACTIVE PROTEIN QUANTITATIV < 0.40 MG/DL (<1.0)
[2023-10-05 14:55] LABS: ALBUMIN 4.3 G/DL (3.2-5.2); ALKALINE PHOSPHATASE 72 U/L (46-116); ALT/SGPT 13 U/L (7.0-40); AST/SGOT 17 U/L (<34); BILIRUBIN,TOTAL 0.6 MG/DL (0.3-1.2); BLOOD UREA NITROGEN 16 MG/DL (9-23); CALCIUM LEVEL 9.3 MG/DL (8.5-10.1); CARBON DIOXIDE LEVEL 30 MMOL/L (20-31); CHLORIDE LEVEL 106 MMOL/L (98-107); CPK CREATINE PHOSPHOKINASE 52 U/L (34-145); CREATININE FOR GFR 0.57 MG/DL (0.55-1.30); GLOMERULAR FILTRATION RATE > 60.0 (>60); GLUCOSE, FASTING 84 MG/DL (60-100); LDH LACTATE DEHYDROGENASE 134 U/L (120-246); POTASSIUM SERUM 4.1 MMOL/L (3.5-5.1); SODIUM LEVEL 136 MMOL/L (136-145); TOTAL PROTEIN 6.8 G/DL (5.7-8.2)
[2023-10-05 14:57] LABS: TOTAL 25(OH) VITAMIN D 8.4 NG/ML (20.0-100.0)
== END ==
LOC: M RAD 12:50
PROVIDERS: ATTEND Internal Medicine Rheumatology
DX: M25.562 Pain in left knee (principal); Z72.0 Tobacco use; R22.9 Localized swelling, mass and lump, unspecified

== ENCOUNTER → 2023-10-05 | Outpatient (CLI) | payer MEDICAID | LOC: M RAD 12:42 | PROVIDERS: ATTEND Nurse Practitioner Family | DX: N83.201 Unspecified ovarian cyst, right side (principal) ==

== ENCOUNTER → 2023-11-24 | Outpatient (CLI) | payer MEDICAID | LOC: M PLARAD 09:26 | PROVIDERS: ATTEND Internal Medicine Rheumatology | DX: M25.562 Pain in left knee (principal) ==

== ENCOUNTER → 2023-11-24 | Outpatient (REF) | payer MEDICAID ==
[2023-11-24 18:19] LABS: IRON (FE) 61 UG/DL (50-170)
[2023-11-24 18:20] LABS: PERCENT SATURATION 16.7 % (13.2-45.0); TOTAL IRON BINDING CAPACITY 366 UG/DL (250-425)
[2023-11-24 18:22] LABS: VITAMIN B12 LEVEL 438 PG/ML (211-911)
[2023-11-24 18:25] LABS: FOLATE > 24.00 NG/ML (>5.4)
== END ==
LOC: M LAB REF 17:01
PROVIDERS: ATTEND Nurse Practitioner Family
DX: M25.562 Pain in left knee (principal); R20.2 Paresthesia of skin

== ENCOUNTER → 2023-12-06 | Outpatient (CLI) | payer MEDICAID ==
[2023-12-06 10:10] LABS: BASO % 0.5 % (0.0-1.0); EOS # 0.1 10^3/uL (0.0-0.5); EOS % 2.8 % (0.0-3.0); HEMATOCRIT 39.8 % (36.0-47.0); HEMOGLOBIN 13.1 g/dl (12.0-15.5); LYMPH # 1.4 10^3/uL (1.5-5.0); LYMPH % 32.6 % (24.0-44.0); MEAN CORPUSCULAR HEMOGLOBIN 26.7 pg (27.0-33.0); MEAN CORPUSCULAR HGB CONC 32.9 g/dl (32.0-36.5); MEAN CORPUSCULAR VOLUME 81.1 fl (80.0-96.0); MONO # 0.4 10^3/uL (0.0-0.8); MONO % 8.9 % (2.0-8.0); NEUTROPHILS # 2.4 10^3/uL (1.5-8.5); PLATELET COUNT, AUTOMATED 195 10^3/uL (150-450); RED BLOOD COUNT 4.91 10^6/uL (4.00-5.40); WHITE BLOOD COUNT 4.3 10^3/uL (4.0-10.0)
[2023-12-06 10:23] LABS: ERYTHROCYTE SEDIMENTATION RATE 2 mm/hr (0-20)
[2023-12-06 10:32] LABS: C REACTIVE PROTEIN QUANTITATIV < 0.40 MG/DL (<1.0)
[2023-12-06 10:34] LABS: ALBUMIN 3.9 G/DL (3.2-5.2); ALKALINE PHOSPHATASE 66 U/L (46-116); ALT/SGPT 25 U/L (7.0-40); AST/SGOT 12 U/L (<34); BILIRUBIN,TOTAL 0.4 MG/DL (0.3-1.2); BLOOD UREA NITROGEN 12 MG/DL (9-23); CALCIUM LEVEL 8.6 MG/DL (8.5-10.1); CARBON DIOXIDE LEVEL 26 MMOL/L (20-31); CHLORIDE LEVEL 110 MMOL/L (98-107); GLOMERULAR FILTRATION RATE > 60.0 (>60); GLUCOSE, FASTING 113 MG/DL (60-100); SODIUM LEVEL 141 MMOL/L (136-145); TOTAL PROTEIN 6.4 G/DL (5.7-8.2)
== END ==
LOC: M LAB 09:37
PROVIDERS: ATTEND Internal Medicine Rheumatology
DX: M25.562 Pain in left knee (principal)

== ENCOUNTER → 2023-12-25 | Outpatient (CLI) | payer MEDICAID | LOC: M SOG 07:56 | PROVIDERS: ATTEND Physician Assistant | DX: M25.562 Pain in left knee (principal); Z53.9 Procedure and treatment not carried out, unspecified reason ==

== ENCOUNTER → 2024-01-26 | Outpatient (CLI) | payer MEDICAID | LOC: M SOG 08:52 | PROVIDERS: ATTEND Physician Assistant | DX: M25.562 Pain in left knee (principal) ==

== ENCOUNTER → 2024-03-28 | Outpatient (REF) | payer OTHER | LOC: M LAB REF 08:35 | PROVIDERS: ATTEND Surgery | DX: D17.22 Benign lipomatous neoplasm of skin and subcutaneous tissue of left arm (principal) ==

== ENCOUNTER → 2024-05-02 | Outpatient (REF) | payer OTHER, MEDICAID | LOC: M LAB REF 12:23 | PROVIDERS: ATTEND Nurse Practitioner Family | DX: J06.9 Acute upper respiratory infection, unspecified (principal) ==

== ENCOUNTER → 2024-05-30 | Outpatient (REF) | payer MEDICAID, OTHER ==
[2024-05-30 14:45] LABS: GC DNA AMPLIFICATION NEGATIVE (NEGATIVE)
== END ==
LOC: M SFHCWAGY 12:21
PROVIDERS: ATTEND Advanced Practice Midwife
DX: Z01.419 Encounter for gynecological examination (general) (routine) without abnormal findings (principal); Z11.3 Encounter for screening for infections with a predominantly sexual mode of transmission; N94.12 Deep dyspareunia

== ENCOUNTER → 2024-08-09 | Outpatient (CLI) | payer OTHER | LOC: M WHC 09:15 | PROVIDERS: ATTEND Advanced Practice Midwife | DX: N83.202 Unspecified ovarian cyst, left side (principal); N88.8 Other specified noninflammatory disorders of cervix uteri ==

== ENCOUNTER 2024-10-27 20:42 | Emergency (ER) | payer OTHER ==
[~2024-10-27] VITALS: Ht 170.2 cm; Wt 87.6 kg
[2024-10-27 20:45] VITALS: BP 114/69; TEMP 98.5; O2SAT 98
[2024-10-28] MEDS: KETOROLAC 60MG 2ML VIAL IM ONE (00:20)
== END 2024-10-28 00:41 | disposition home or self-care (01) ==
LOC: M ED 20:42
DX: S90.31XA Contusion of right foot, initial encounter (principal); W22.01XA Walked into wall, initial encounter; F43.10 Post-traumatic stress disorder, unspecified; G43.909 Migraine, unspecified, not intractable, without status migrainosus; N93.8 Other specified abnormal uterine and vaginal bleeding; Z88.8 Allergy status to other drugs, medicaments and biological substances; Y92.009 Unspecified place in unspecified non-institutional (private) residence as the place of occurrence of the external cause; Y93.89 Activity, other specified; Y99.9 Unspecified external cause status; Z79.899 Other long term (current) drug therapy
CPT/HCPCS: 73650; 96372; 99284; J1885

== ENCOUNTER → 2025-01-23 | Outpatient (CLI) | payer OTHER | LOC: M RAD 13:02 | PROVIDERS: ATTEND Nurse Practitioner Family | DX: M25.531 Pain in right wrist (principal) ==

== ENCOUNTER → 2025-05-05 | Outpatient (CLI) | payer OTHER ==
[~2025-05-05] MED LIST changes: -IBUP-1022 PO; +IBUP600T42 PO
== END ==
LOC: M RAD 13:11
PROVIDERS: ATTEND Nurse Practitioner Family
DX: M54.6 Pain in thoracic spine (principal)

== ENCOUNTER → 2025-06-11 | Outpatient (REF) | payer OTHER ==
[2025-06-11 15:21] LABS: Trichomonas vaginalis (AMP) NOT DETECTED (NEGATIVE)
[2025-06-11 15:44] LABS: GC DNA AMPLIFICATION NEGATIVE (NEGATIVE)
[2025-06-13 16:20] LABS: HPV APTIMA Not Detected (Not Detected)
== END ==
LOC: M SFHCWAGY 13:00
PROVIDERS: ATTEND Advanced Practice Midwife
DX: Z12.4 Encounter for screening for malignant neoplasm of cervix (principal); R87.618 Other abnormal cytological findings on specimens from cervix uteri

== ENCOUNTER → 2025-07-14 | Outpatient (REF) | payer OTHER | LOC: M PLALAB 10:24 | PROVIDERS: ATTEND Obstetrics & Gynecology | DX: N93.9 Abnormal uterine and vaginal bleeding, unspecified (principal) ==